=== PATIENT | female | born 1945 | race Caucasian/White ===

== ENCOUNTER 2017-01-11 10:37 | Inpatient (IN) ==
[2017-01-11] MEDS ORDERED: methylPREDNISolone SOD SUC 125 MG/2 ML VIAL IV STA (11:01)
[2017-01-11] MEDS ORDERED: NITROGLYCERIN 2% OINT 1 INCH/GM PACK TOP STA (11:01)
[2017-01-11] MEDS ORDERED: ASPIRIN 325 MG TABLET PO STA (11:01)
[2017-01-11] MEDS ORDERED: FUROSEMIDE 100 MG/10 ML VIAL IV STA (11:01)
[2017-01-11] MEDS ORDERED: FUROSEMIDE 100 MG/10 ML VIAL ONE (11:27)
[2017-01-11] MEDS ORDERED: methylPREDNISolone SOD SUC 125 MG/2 ML VIAL ONE (11:27)
[2017-01-11] MEDS ORDERED: ASPIRIN 325 MG TABLET ONE (11:27)
[2017-01-11] MEDS ORDERED: NITROGLYCERIN 2% OINT 1 INCH/GM PACK TOP ONE (11:27)
[2017-01-11] MEDS ORDERED: ALBUTEROL 2.5 MG/3 ML NEB RESP TX SCH (11:30)
--- NOTE | 2017-01-11 11:31 | XRay Report ---
Portable chest Date: 01/11/2017 Clinical history: Shortness of breath Comparison: None Technique: Portable AP sitting chest Findings: The heart is normal in size with calcification in the aortic knob. Atelectasis at the lung bases. Prominent right hilum. Degenerative changes are noted. Impression: Atelectasis at the lung bases. Prominent right hilum which can be seen with adenopathy/mass. PROCEDURE INTERPRETED AT [facility] DEPARTMENT OF RADIOLOGY Final Report Signed by: Dr. Lotus He
--- NOTE | 2017-01-11 11:39 | EKG Report ---
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
--- NOTE | 2017-01-11 11:41 | CT Report ---
Exam: CT chest PE study Date: 01/11/2017 11:01 AM Indication: Exertional dyspnea Comparison: Routine radiograph Technical: Images were obtained from the thoracic inlet through the lung bases with 80 cc of Omnipaque 350 with axial and coronal imaging available for review. Dose reduction was performed with decreasing kv and mA and automated exposure. 3-D MIP images were obtained Findings: Slightly less than optimal opacification.. The pulmonary outflow tract, left and right proximal pulmonary arteries, first-order, second-order and third order branches reveal no evidence of pulmonary thromboemboli. The lungs are demonstrated without infiltrates or effusions. The mediastinum reveals adenopathy measuring up to approximately 3 cm in the right hilar region with small carinal nodes in the right posterior mediastinal mass adenopathy measuring 1.7 cm. No obvious pneumothorax. Some scarring is present in the right lateral base. No supraclavicular or axillary nodes present. The liver and spleen and stomach are otherwise intact. The adrenal glands are intact. Impression: 1. Right supra suprahilar mass and adenopathy highly suspicious for malignancy . This measures up to 3.6 x3 cm with satellite ipsilateral adenopathy also present. This is suspicious for small cell carcinoma. PET CT imaging or bronchoscopy recommended. 2. No obvious pulmonary thromboemboli Critical test report called to the patient's nurse in the emergency department PROCEDURE INTERPRETED AT [facility] DEPARTMENT OF RADIOLOGY Final Report Signed by: Dr. Eusebio Dover
[2017-01-11 11:46] LABS: Basophils % 0.4 % (0.0-0.8); Eosinophils # 0.1 10*3/uL (0.0-0.87); Eosinophils % 1.1 % (0.00-10.9); Hematocrit 42.8 VOL% (35.7-47.0); Immature Granulocytes % 0.6 %; Immature Granulocytes Absolute 0.05 #; Lymphocytes # 2.2 10*3/uL (1.4-4.0); Lymphocytes % 24.9 % (21.3-54.2); Mean Corpuscular HGB Conc 32.7 GM/DL (32-36); Mean Corpuscular Hemoglobin 30 PG (27-34); Mean Corpuscular Volume 90.9 FL (87-102); Mean Platelet Volume 10.7 FL (9.6-12.0); Monocytes # 0.6 10*3/uL (0.11-0.8); Monocytes % 6.6 % (1.7-12.7); Neutrophils % 66.4 % (38.7-73.9); Platelet Count 212 T/CUMM (130-400); Red Blood Count 4.71 MC/CUMM (3.8-5.5); Red Cell Distribution Width 14.4 % (9.3-17.3)
[2017-01-11] MEDS ORDERED: ENOXAPARIN 100 MG/ML SYRINGE SUBCUT STA (11:53)
[2017-01-11 11:54] LABS: PT Patient Result 10.2 SECS
[2017-01-11 11:57] LABS: ABG Base Excess 2.5 MMOL/L (-2.5-2.5); ABG HCO3 26.5 MMOL/L (20-26); ABG Oxygen Saturation 91.1 % (95-100); ABG PCO2 46.9 MM HG (35-48); ABG PH 7.388 (7.35-7.45); ABG PO2 57.6 MM HG (80-95); ABG TCO2 24.8 MMOL/L (23-27)
[2017-01-11] MEDS ORDERED: ENOXAPARIN 100 MG/ML SYRINGE SUBCUT ONE (12:01)
[2017-01-11 12:17] LABS: Alanine Aminotransferase 39 U/L (13-56); Albumin 3.4 G/DL (3.4-5.0); Alkaline Phosphatase 120 U/L (45-117); Aspartate Amino Transferase 16 U/L (0-37); Blood Urea Nitrogen 11 MG/DL (7-18); Calcium 8.3 MG/DL (8.5-10.1); Glucose 118 MG/DL (74-106); Magnesium 2.3 MG/DL (1.8-2.4); Osmolality,Calculated 280.3 MOS/KG (273-304); Potassium 3.8 MMOL/L (3.5-5.1); Sodium 141 MMOL/L (136-145); Total Protein 6.5 G/DL (6.4-8.3); Troponin I Only < 0.015 NG/ML (0.00-0.045)
[2017-01-11 12:28] LABS: Apearance,Urine CLEAR (Clear); Bilirubin,Urine Negative (Negative); Blood, Urine Moderate mg/dL (Negative); Glucose,Urine (UA) Negative (Negative); Ketones,Urine Negative (Negative); Mucus,Urine Occasional /LPF (Occasional); Nitrite,Urine Negative (Negative); Protein,Urine Negative; RBC,Urine 3 /HPF (0-4); Squamous Epithelial Cell,Urine Occasional /HPF (0-10); Urine Color Straw (Yellow); Urine Specific Gravity 1.045 (1.001-1.035); Urine Urobilinogen < 2.0 EU/DL (0.2-1.0); WBC,Urine <1 /HPF (0-6)
--- NOTE | 2017-01-11 12:30 | Emergency Department Note ---
Gilmer Villatoro Kasabria, am scribing for, and in the presence of, Tacos Barcenas MD 11:09. Narinder Villatoro Charles R, MD, personally performed the services described in this documentation, ascribed by Shabnam Scherer in my presence, and it is both accurate and complete . Arrival - Arrival Chief Complaint: Shortness of Breath Stated Complaint: o2 level down, bp elevated ED Nursing Triage Note: Pt sent from [facility] for low O2 sat (60's) and high blood pressure. Pt is on home O2 at triage. Mode of Arrival: Wheelchair Limitations: No Limitations Source: Patient Time Seen by Provider: 01/11/17 10:53 - History of Present Illness HPI Narrative: This is a 71 y/o white female presenting to the ED for further evaluation from the clinic for low 02 saturation in the 60's and high blood pressure. Pt states she wears at home oxygen 24/7 and is extremely short of breath. Pt was hospitalized three weeks ago at [facility] and states she was given antibiotics and steroids. She thought she had walking PNA but was tested 5 times and all were negative. Pt states her SOB onset while staying in [place] in May. The building was 200 years old and the next morning when she woke up this is when the SOB onset. She is scheduled to see Dr. Nelson for the first time on . She states she has been unable to lay flat for the past several years since her hernia diagnosis. Pt is a borderline diabetic and a PMHx of COPD. She denies GOODE, vision change, fever, chills, nausea, vomiting, diarrhea, abdominal pain, back pain, dysuria, and pedal edema. She has a family history of CHF. Pt is a former smoker. Consistency: constant Severity: moderate Allergies/Adverse Reactions: Allergies Allergy/AdvReac Type Severity Reaction Status Date / Time Tetracycline AdvReac Unknown/Unable Verified 01/11/17 10:39 to obtain Review of System - Review of System 12 point system: reviewed and no additional remarkable complaints except as stated - Review of System Constitutional: Absent: chills, fever, weakness Eyes: Absent: vision change Head/Ears/Nose/Throat: Absent: earache, nasal drainage Respiratory: Absent: cough, wheezing Cardiovascular: Present: dyspnea on exertion. Absent: chest pain Gastrointestinal: Absent: abdominal pain, nausea, vomiting, diarrhea Genitourinary female: Absent: dysuria Musculoskeletal: Absent: arm pain, back pain, leg pain, neck pain Skin: Absent: rash Neurological: Absent: headache, weakness, confusion, vertigo Psychiatric: Absent: anxiety Endocrine: Absent: fatigue Medical,Surgical,& Family Hx - Medical History Respiratory: History of: COPD Other: History of: Miscellaneous Medical Problems (Shingles) - Social History Smoking Status: Former smoker Exam Vital Signs: Vital Signs Temperature 97.5 F L 01/11/17 10:37 Pulse Rate 100 H 01/11/17 10:37 Respiratory Rate 24 01/11/17 10:37 Blood Pressure 138/66 01/11/17 10:37 O2 Sat by Pulse Oximetry 87 L 01/11/17 10:37 - General General appearance: alert, in no apparent distress - Head Head exam: Present: atraumatic, normocephalic, normal inspection - Eye Eye exam: Present: normal appearance, PERRL, EOMI - ENT ENT exam: Present: normal exam, normal oropharynx, mucous membranes moist, TM's normal bilaterally, normal external ear exam - Neck Neck exam: Present: normal inspection, full ROM, trachea midline. Absent: tenderness - Chest Chest inspection: Present: normal inspection, symmetric chest wall rise - Respiratory Respiratory exam: Present: rales (at the base ), rhonchi. Absent: normal lung sounds bilaterally - Cardiovascular Cardiovascular exam: Present: regular rate, normal rhythm, normal heart sounds - Abdominal Exam Abdominal exam: Present: soft, normal bowel sounds. Absent: distention, tenderness - Extremities Exam Extremities exam: Present: normal inspection, full ROM, normal capillary refill. Absent: tenderness, pedal edema, calf tenderness - Back Exam Back exam: Present: normal inspection, full ROM. Absent: tenderness - Neurological Exam Neurological exam: Present: alert, oriented X3, CN II-XII intact, normal gait, reflexes normal - Psychiatric Psychiatric exam: Present: normal affect, normal mood - Skin Skin exam: Present: warm, dry, intact, normal color. Absent: rash, diaphoresis Course - Consultations Consultation #1: Hospitalist will admit patient Time: 12:20 Results - Labs CBC & BMP: 01/11/17 11:05 01/11/17 11:05 Lab Results: I have reviewed the patients labs Labs: Laboratory Tests 01/11/17 11:45 ABG pO2 57.6 L ABG HCO3 26.5 H ABG O2 Saturation 91.1 L - Diagnostic Findings Procedure: Chest x-ray: report reviewed by me (atelectasis at the lung bases. Prominent right hilum which can be seen with adenopathy/mass), CT - chest: report reviewed by me (Right suprahilar mass and adenopathy highly suspicious for malignancy. This measures up to 3.6x3cm with satellite ipsilateral adenopathy also present. This is suspicious for small cell carcinoma. PET CT imaging or bronchoscopy recommended. No obvious pulmonary thrombiemboli.) Critical Care Time Critical Care Time: Yes Total Critical Care Time: 60 Disposition Clinical Impression: Mass of right lung, Suspicious cancerous lesion right long, Exertional dyspnea , Respiratory distress, Hypoxia, COPD exacerbation, Left bundle branch block Case discussed with: patient, patient's family Disposition: Still a Patient Condition: Guarded Time of Disposition: 12:29
[2017-01-11] MEDS ORDERED: ACETAMINOPHEN 325 MG TABLET PO PRN (13:35)
[2017-01-11] MEDS ORDERED: ONDANSETRON 4 MG/2 ML VIAL IV PRN (13:35)
[2017-01-11] MEDS ORDERED: diphenhydrAMINE CAP 25 MG CAPSULE PO PRN (13:35)
[2017-01-11] MEDS ORDERED: DOCUSATE SODIUM 100 MG CAPSULE PO PRN (13:35)
[2017-01-11] MEDS ORDERED: guaiFENesin/DM ER 600-30 MG TABLET PO PRN (13:35)
[2017-01-11] MEDS ORDERED: MORPHINE 2 MG/1 ML SYRINGE IV PRN (13:35)
[2017-01-11] MEDS ORDERED: FLUTICASONE 50 MCG NASAL SPRAY 16 GM BOTTLE BOTH NARES PRN (13:38)
--- NOTE | 2017-01-11 13:45 | Hospitalist History & Physical ---
Assessment and Plan - Time spent with patient Time spent with patient: Greater than 30 minutes (1) Mass of right lung Status: Acute Assessment and plan: Ms. Dumas is a pleasant 71-year-old white female admitted with acute shortness of breath. Patient was found on CT scan to have a right lung mass suspicious for malignancy. Patient is satting 91% on 15 L of O2 by facemask at this time. She is being admitted by the hospitalist service for further workup. Consult Dr. Reagan from pulmonary for further evaluation. We will go ahead and restart her home medicines and monitor her blood pressure. Patient's case has been discussed with Dr. Daniels and further recommendations to follow. Current Visit: Yes (2) Respiratory distress Status: Acute Current Visit: Yes (3) Hypoxia Status: Acute Current Visit: Yes (4) Left bundle branch block Status: Acute Current Visit: Yes (5) Hypertension Status: Acute Current Visit: Yes History of Present Illness Chief complaint: Shortness of breath History of present illness: Ms. Dumas is a 71 year old female with history of hypertension presenting to the ED with progressive shortness of breath. Patient states she started becoming short of breath in May and ignored it. She says she was a 40 year smoker of 3 packs per day. She quit 7 years ago. She states she went to her family doctor finally in August where she was diagnosed with pneumonia and then bronchitis. She has been treated intermittently for the last few months with pneumonia and bronchitis by Dr. Schwab and nurse practitioner Anaid Stewart. Patient states she finally became acutely short of breath about 3 weeks ago and was taken to the emergency room at [facility] where she was admitted, started on IV antibiotics, steroids and breathing treatments. They state she had an acute exacerbation of COPD. She states when she was discharged several days later she continued to wheeze. Patient states she went to the [facility] Anaid Stewart again today for follow-up with progressive shortness of breath and she sent patient to [facility] emergency room. CT scan done in the emergency room shows a right supra hilar mass and adenopathy highly suspicious for malignancy. It measures up to 3.6 x 3 cm with satellite ipsilateral adenopathy present. This is suspicious for small cell carcinoma. There is no obvious pulmonary thromboemboli. Her chest x-ray showed atelectasis at the lung bases with a prominent right hilum suspicious for adenopathy/mass. Her EKG shows a left bundle branch block. Her labs are okay with only abnormality being in an elevated alkaline phosphatase at 120. Her ABGs are showing a low PO2 with O2 saturation at 91% on 15 L facemask. Upon exam patient is tachypneic with conversational dyspnea. Her chest is clear and her blood pressure is elevated. Patient denies headache but has had some blurry vision. She denies chest pain , constipation or diarrhea, dysuria, or lower extremity edema. Patient's case was discussed with Dr. Barcenas the ED physician and Dr. Daniels the admitting hospitalist, and it was agreed patient would be admitted for further evaluation and treatment. Home Medications Medication Instructions Recorded Confirmed Type Albuterol Sulfate [Proair HFA] 2 puff INH BID 01/11/17 01/11/17 History Albuterol/Ipratropium Neb [Duoneb] 3 ml RESP TX BID 01/11/17 01/11/17 History Budesonide/Formoterol 80-4.5 2 puff INH BID 01/11/17 01/11/17 History [Symbicort 80-4.5] Cetirizine Tab [ZyrTEC Tab] 10 mg PO DAILY 01/11/17 01/11/17 History Fluticasone 50 Mcg Nasal [place] 1 spray BOTH NARES DAILY PRN 01/11/17 01/11/17 History [Flonase Nasal [place]] amLODIPine [Norvasc] 5 mg PO DAILY 01/11/17 01/11/17 History Allergies Allergy/AdvReac Type Severity Reaction Status Date / Time Tetracycline AdvReac Unknown/Unable Verified 01/11/17 10:39 to obtain Medical,Surgical,& Family Hx - Medical History Cardio: History of: Hypertension Respiratory: History of: COPD Other: History of: Miscellaneous Medical Problems (Shingles) - Surgical History Abdominal Surgeries: Patient denies: Abdominal Surgery - Family History Family History: Reports;: Family Hypertension - Social History Smoking Status: Former smoker Frequency of Alcohol Use: None Type of Drug Use: None Marital Status: Lives With:: Spouse Functional capacity: independent ambulation Review of systems: Complete 10 system review of systems was obtained and pertinent positives and negatives per HPI Exam - Constitutional Vitals: Period Temp Pulse Resp BP Sys/Cavazos Pulse Ox Last 24 Hr 97.5 F-97.5 F 89-109 22-24 120-150/66-90 87-91 Exam: Constitutional System: Mild distress. No tremulousness. Head: Normocephalic, atraumatic. Ears, Nose and Throat System: No evidence of Otitis or Mastoiditis. No epistaxis or discharge Eyes System: Pupils equal, round, and reactive. Extraocular muscles intact. Neck: Supple, without adenopathy, No jugular venous distention. No thyromegaly, neck mass, or prior surgery apparent. Respiratory System: Chest clear to auscultation. Cardiovascular System: Heart with tachycardic rate and rhythm. No murmur. GI System: Abdomen soft, nontender. Normo active bowel sounds present. Musculoskeletal System: limbs with no pedal edema. Full distal pulses. Neurological System: No discernable sensory deficit. No aphasia Psychiatric System: Conversation is rational Results - Labs CBC & BMP: 01/11/17 11:05 01/11/17 11:05 Lab Results: I have reviewed the past 24 hour labs - Impressions EKG showing left bundle branch block - Diagnostic Findings Procedure: Chest x-ray: report reviewed by me (Atelectasis at the lung bases with prominent right hilum which can be seen with adenopathy/mass), CT - chest: report reviewed by me (Right suprahilar mass and adenopathy suspicious for malignancy. This measures up to 3.6 x 3 cm with satellite ipsilateral adenopathy present. Suspicious for small cell carcinoma. No PE)
[2017-01-11] MEDS ORDERED: ENOXAPARIN 40 MG/0.4 ML SYRINGE SUBCUT SCH (14:00)
[2017-01-11] MEDS: amLODIPine 5 MG TABLET PO SCH (16:55)
[2017-01-11] MEDS: BUDESONIDE/FORMOTEROL 80-4.5 INHALER 6.9 GM INH SCH ×2 (16:56→21:45)
[2017-01-11] MEDS: CETIRIZINE 10 MG TABLET PO SCH (16:56)
[2017-01-11] MEDS: PANTOPRAZOLE 40 MG TABLET PO SCH (16:56)
[2017-01-11] MEDS ORDERED: LEVOFLOXACIN INJ 500 MG in PREMIX 1 EACH IV SCH (17:00)
--- NOTE | 2017-01-11 17:36 | Pulmonology Consult Note ---
Assessment and Plan (1) Mass of right lung Status: Acute Assessment and plan: CT was reviewed and this mass certainly looks likely to be a bronchogenic carcinoma. It is totally compressing the right mainstem bronchus. Difficult to tell whether there is an endobronchial component to it. We will plan bronchoscopy and hopefully I can get a biopsy and a diagnosis that way. If not she may require mediastinoscopy or needle biopsy. We need to get a diagnosis as soon as we can because it is almost totally obstructing the right mainstem bronchus. She would need early radiation and/or chemotherapy under oncology management. Probably would be best to get oncology to see her tomorrow before we even get a diagnosis so they could be ready. Current Visit: Yes (2) Hypoxia Status: Acute Assessment and plan: Nasal oxygen, steroids. oxygen saturation acceptable on current settings. Current Visit: Yes (3) COPD exacerbation Status: Acute Assessment and plan: She does have a localized wheeze on the right side with decreased breath sounds. Not sure whether she actually has COPD or if this is entirely from the lung mass causing obstruction of right mainstem bronchus. Will treat with steroids and bronchodilators anyway. Current Visit: Yes History of Present Illness Chief complaint: Shortness of breath History of present illness: Ms. Dumas is a 71 year old female who had the onset about 7 months ago of shortness of breath when she was visiting in [place]. She got quite short of breath walking. She has continued to have problems with shortness of breath since that time. She saw Dr. Schwab twice in August and was treated with antibiotics and prednisone. She had a chest x-ray that was read as normal. Subsequently had 2 visits to the emergency room at [facility] last month with outpatient treatment wants and a 2 day admission the second time. Again chest x -rays were read as clear at that time. She was brought to the emergency room here earlier today with increasing shortness of breath. She was on oxygen at home and her saturation would drop to 76% just walking to the bathroom. She is a long-term smoker but quit about 6 years ago. She said she gained some weight after stopping smoking. She has had a previous hysterectomy but no other surgery. She had DVT in her left leg when she was in her 20s but never since then. She has not coughed up blood. She does have some pain in her left chest wall. She has noted some fullness in her lower chest anteriorly. There is no known history of heart disease. Home Medications Medication Instructions Recorded Confirmed Type Albuterol Sulfate [Proair HFA] 2 puff INH BID 01/11/17 01/11/17 History Albuterol/Ipratropium Neb [Duoneb] 3 ml RESP TX BID 01/11/17 01/11/17 History Budesonide/Formoterol 80-4.5 2 puff INH BID 01/11/17 01/11/17 History [Symbicort 80-4.5] Cetirizine Tab [ZyrTEC Tab] 10 mg PO DAILY 01/11/17 01/11/17 History Fluticasone 50 Mcg Nasal [place] 1 spray BOTH NARES DAILY PRN 01/11/17 01/11/17 History [Flonase Nasal [place]] amLODIPine [Norvasc] 5 mg PO DAILY 01/11/17 01/11/17 History Allergies Allergy/AdvReac Type Severity Reaction Status Date / Time Tetracycline AdvReac Unknown/Unable Verified 01/11/17 10:39 to obtain 12 point system: reviewed and no additional remarkable complaints except as stated - Constitutional Constitutional: Present: weight gain - Cardiovascular Cardiovascular: Present: dyspnea, dyspnea on exertion - Respiratory Respiratory: Present: cough, dyspnea, dyspnea on exertion - Musculoskeletal Musculoskeletal: Present: myalgias (Left shoulder muscle pain) Exam (Pulmonay) H&P - Constitutional Vitals: Period Temp Pulse Resp BP Sys/Cavazos Pulse Ox Last 24 Hr 98.4 F 102-110 20-24 100-146/56-82 87-92 Exam: Vital signs normal except for pulse about 105. HEENT: Pupils react to light. Throat is clear. Neck supple no bruits. Chest reveals decreased breath sounds on the right side and minimal wheezes there. Left lung is essentially clear. Heart rapid rate normal rhythm no murmurs. Abdomen soft nontender no masses. Bowel sounds present. Extremities no clubbing cyanosis or edema. Calves nontender. Medical,Surgical,& Family Hx - Medical History Cardio: History of: Hypertension Psychological: No history of: Anxiety Disorders, ADHD, Behavior Problems, Bipolar Disorder, Depression, Previous Suicide Attempt, Psychiatric/Substance Abuse Tx, Schizophrenia, Violent Behavior, Psychiatric Problems Respiratory: History of: COPD, Respiratory Problems (lung mass) Other: History of: Miscellaneous Medical Problems (Shingles) - Surgical History Cardiac Surgeries: Patient Denies: Cardiac Catheterization Thoracic Surgeries: Patient denies;: Organ Transplant Abdominal Surgeries: Patient denies: Abdominal Surgery Reproductive Surgeries: Surgical HX of;: Hysterectomy - Family History Family History: Reports;: Family Cancer, Family Heart Disease (mother chf), Family Hypertension, Family Stroke (father) Comment Only: Family Diabetes (brother, sister) - Social History Smoking Status: Former smoker Frequency of Alcohol Use: None Type of Drug Use: None Results - Labs CBC & BMP: 01/11/17 11:05 01/11/17 11:05 Lab Results: I have reviewed the past 24 hour labs - Diagnostic Findings Procedure: Chest x-ray: image reviewed by me (Right hilum is plump), CT - chest : image reviewed by me (3 cm right paratracheal mass totally compressing the right mainstem bronchus. Highly suggestive for bronchogenic carcinoma.)
[2017-01-11 18:43] LABS: PT Patient Result 10.7 SECS; Partial Thromboplastin Time 28.5 SECS (0-40)
[2017-01-11] MEDS: ALBUTEROL/IPRATROPIUM 3 ML NEB RESP TX SCH (20:03)
[2017-01-11] MEDS: ALBUTEROL 2.5 MG/3 ML NEB RESP TX SCH (20:04)
[2017-01-11] MEDS: methylPREDNISolone SOD SUC 125 MG/2 ML VIAL IV SCH (23:30)
[2017-01-12] MEDS ORDERED: MEPERIDINE 50 MG/1 ML VIAL IM ONE (07:00)
[2017-01-12] MEDS ORDERED: PROMETHAZINE 25 MG/1 ML VIAL IM ONE (07:00)
[2017-01-12 07:24] LABS: Basophils % 0.1 % (0.0-0.8); Hematocrit 40.6 VOL% (35.7-47.0); Hemoglobin 13.5 GM/DL (12.0-16.0); Immature Granulocytes % 0.8 %; Lymphocytes # 1.2 10*3/uL (1.4-4.0); Lymphocytes % 9.8 % (21.3-54.2); Mean Corpuscular HGB Conc 33.3 GM/DL (32-36); Mean Corpuscular Hemoglobin 30 PG (27-34); Mean Corpuscular Volume 88.8 FL (87-102); Mean Platelet Volume 10.7 FL (9.6-12.0); Monocytes # 0.1 10*3/uL (0.11-0.8); Monocytes % 0.7 % (1.7-12.7); Neutrophils # 10.9 10*3/uL (1.4-7.4); Neutrophils % 88.6 % (38.7-73.9); Platelet Count 236 T/CUMM (130-400); Red Blood Count 4.57 MC/CUMM (3.8-5.5); Red Cell Distribution Width 14.4 % (9.3-17.3); White Blood Count 12.3 T/CUMM (4-12)
[2017-01-12] MEDS ORDERED: MIDAZOLAM 2 MG/2 ML VIAL IV ONE (07:30)
[2017-01-12] MEDS ORDERED: LIDOCAINE 1% 20 ML VIAL MISC INJ ONE (07:30)
[2017-01-12] MEDS: ALBUTEROL/IPRATROPIUM 3 ML NEB RESP TX SCH (07:40)
[2017-01-12 07:47] LABS: Calcium 8.7 MG/DL (8.5-10.1); Magnesium 2.2 MG/DL (1.8-2.4); Osmolality,Calculated 284.4 MOS/KG (273-304)
[2017-01-12] MEDS: ALBUTEROL 2.5 MG/3 ML NEB RESP TX SCH (08:04)
--- NOTE | 2017-01-12 09:08 | Pulmonology Progress Note ---
Pulmonary - PN: Subj Interval history: This 71-year-old white female has had worsening shortness of breath. She has a mass at the takeoff of the right main bronchus that is apparently totally obstructing it. She gets tired to the right long it is still aerated. However there is only a pin-like opening into the right long. She is set up for bronchoscopy today. She is a little less short of breath. She is coughing up a little phlegm. Exam (Progress Note) - Constitutional Vitals: Period Temp Pulse Resp BP Sys/Cavazos Pulse Ox Last 24 Hr 96.0 F-98.4 F 92-115 14-24 100-146/56-91 87-99 Exam: Patient's alert oriented vital signs normal. O2 sat 94% on 2 L. Pupils react to light. Throat is clear. Neck supple no bruits. Chest reveals decreased breath sounds on the right compared to the left and a localized wheeze over the right midlung. Heart normal rate and rhythm no murmurs. Abdomen soft nontender no masses. Extremities no clubbing cyanosis edema. Calves nontender. Results - Labs CBC & BMP: 01/12/17 06:03 01/12/17 06:03 Lab Results: I have reviewed the past 24 hour labs Assessment and Plan (1) Mass of right lung Status: Acute Assessment and plan: CT was reviewed and this mass certainly looks likely to be a bronchogenic carcinoma. It is totally compressing the right mainstem bronchus. Difficult to tell whether there is an endobronchial component to it. We will plan bronchoscopy and hopefully I can get a biopsy and a diagnosis that way. If not she may require mediastinoscopy or needle biopsy. We need to get a diagnosis as soon as we can because it is almost totally obstructing the right mainstem bronchus. She would need early radiation and/or chemotherapy under oncology management. Probably would be best to get oncology to see her tomorrow before we even get a diagnosis so they could be ready. 01/12/2017 the mass is adjacent to the lower right trachea and appears to completely compress to right main bronchus. Difficult to tell whether there is an endobronchial component. We will know after doing the bronchoscope today. This is almost certainly a bronchogenic carcinoma. She is at risk for total obstruction of the right lung. Current Visit: Yes (2) Hypoxia Status: Acute Assessment and plan: Nasal oxygen, steroids. oxygen saturation acceptable on current settings. 01/12/2017 O2 sat 94% on 2 L. Current Visit: Yes (3) COPD exacerbation Status: Acute Assessment and plan: She does have a localized wheeze on the right side with decreased breath sounds. Not sure whether she actually has COPD or if this is entirely from the lung mass causing obstruction of right mainstem bronchus. Will treat with steroids and bronchodilators anyway. 01/12/17 continuing steroids bronchodilators. Current Visit: Yes
--- NOTE | 2017-01-12 09:29 | Operative Note ---
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 She was brought down to the bronchoscopy suite. After an appropriate timeout to be sure we were dealing with Deborah Dumas, the patient was topically anesthetized in the nose and nasopharynx with Xylocaine. 3 L of nasal oxygen was placed in the right naris. 2 mg of Versed was given intravenously to the point of sedation. The fiberoptic bronchoscope was introduced via the left naris. Vocal cords were identified and noted to function normally with phonation. After further topical anesthesia the trachea was entered. The upper trachea was normal. The distal 2 cm of the right tracheal wall was involved with tumor. It appeared to be mostly extrinsic but there were some abnormal mucosal areas. We biopsied these areas. The mass totally obstructed the right main bronchus. I was able to push it out of the way and get around with a bronchoscope and visualized the right lower and middle lobe bronchi which appeared normal. The right upper lobe is apparently totally obstructed as well. We withdrew back into the trachea to obtain the biopsies. There was mild bleeding which cleared with saline irrigation. Photos were taken as well. This is not a surgically approachable lesion. It involves the lower trachea as well as proximal right main bronchus. She has about 99% obstruction of the right main bronchus, however the tumor is soft enough to be pushed aside with the bronchoscope. Anesthesia: conscious sedation Surgeon / Physician: Charles Reagan Estimated blood loss: minimal Specimens: other (Biopsies 2 or right tracheal wall at takeoff of right main bronchus. Bronchial washings. Low-dose) Condition: stable Disposition: floor Results - Labs CBC & BMP: 01/12/17 06:03 01/12/17 06:03 Discharge Plan - Discharge Medications No Action amLODIPine [Norvasc] 5 mg PO DAILY Fluticasone 50 Mcg Nasal [place] [Flonase Nasal [place]] 1 spray BOTH NARES DAILY PRN PRN Reason: Sinus Symptoms Cetirizine Tab [ZyrTEC Tab] 10 mg PO DAILY Albuterol/Ipratropium Neb [Duoneb] 3 ml RESP TX BID Albuterol Sulfate [Proair HFA] 2 puff INH BID Budesonide/Formoterol 80-4.5 [Symbicort 80-4.5] 2 puff INH BID - Follow Up or Referral - Forms/Instructions
[2017-01-12] MEDS ORDERED: MIDAZOLAM 2 MG/2 ML VIAL ONE (09:45)
[2017-01-12] MEDS: CETIRIZINE 10 MG TABLET PO SCH (11:16)
[2017-01-12] MEDS: PANTOPRAZOLE 40 MG TABLET PO SCH (11:16)
[2017-01-12] MEDS: BUDESONIDE/FORMOTEROL 80-4.5 INHALER 6.9 GM INH SCH (11:16)
[2017-01-12] MEDS: amLODIPine 5 MG TABLET PO SCH (11:16)
[2017-01-12] MEDS: methylPREDNISolone SOD SUC 125 MG/2 ML VIAL IV SCH (11:19)
[2017-01-12 11:41] VITALS: BP 131/64
--- NOTE | 2017-01-12 11:45 | XRay Report ---
Portable chest Date: 01/12/2017 Clinical history: Postbronchoscopy Comparison: 01/11/2017 Technique: Portable AP sitting chest Findings: The heart is normal in size with calcification in the aortic knob. No evidence of a pneumothorax. Minimally progressive diffuse chronic findings at the lung bases with persistent right hilar prominence. Degenerative changes are noted. Impression: No pneumothorax. Progressive atelectasis/infiltration/edema at the lung bases. Residual right hilar prominence with CT proven suprahilar mass. PROCEDURE INTERPRETED AT [facility] [place] DEPARTMENT OF RADIOLOGY Final Report Signed by: Dr. Lotus He
--- NOTE | 2017-01-12 11:47 | Discharge Summary ---
Hospital Course - Hospital Course Hospital Course: The patient is admitted to the hospital with shortness of breath. CT scan reveals right hilar lung mass. The patient had pulmonary consultation with Dr. Reagan. Bronchoscopy revealed the mass had total occlusion of the right mainstem bronchus. the right perihilar mass was found to be soft and movable. When lying in right decubitus the mass allowed some aeration of the right lower and middle lung field . Dr. Reagan felt that the mass was too close to the trachea to be resectable. Biopsies were taken and are now pending. Dr. Reagan did not show any endobronchial lesion on the photographs in the medical record. The patient has now recovered from bronchoscopy and wishes to go home to await pathology. The patient has some shortness of breath which is positional as expected. The patient has no fever and only mild upper airway mucus. The patient will be discharged home with bronchodilator medication. Exam on the date of discharge with the patient sitting upright reveals diminished breath sounds on the entire right side. Discharge time reviewing plan of care and authoring discharge documents required 33 minutes - Time spent with patient Time with patient DS: Greater than 30 minutes Diagnosis - Discharge Diagnosis (1) Mass of right lung Status: Acute (2) Exertional dyspnea Status: Chronic (3) Hypertension Status: Chronic Specialty Discharge - Follow Up or Referrals Follow up with: Charles Reagan MD [Physician] - 01/19/17 2:30 pm Discharge Plan - Discharge Data Disposition: Disch To Home/Self Care Condition at Discharge: Stable Discharge Diet: regular diet Activity: resume usual activities as tolerated - Discharge Medications Continue amLODIPine [Norvasc] 5 mg PO DAILY Fluticasone 50 Mcg Nasal [place] [Flonase Nasal [place]] 1 spray BOTH NARES DAILY PRN PRN Reason: Sinus Symptoms Cetirizine Tab [ZyrTEC Tab] 10 mg PO DAILY Albuterol/Ipratropium Neb [Duoneb] 3 ml RESP TX BID Albuterol Sulfate [Proair HFA] 2 puff INH BID Budesonide/Formoterol 80-4.5 [Symbicort 80-4.5] 2 puff INH BID - Follow Up or Referral Follow Up: Charles Reagan MD [Physician] - 01/19/17 2:30 pm - Forms/Instructions Exam - Constitutional Vitals: Period Temp Pulse Resp BP Sys/Cavazos Pulse Ox Last 24 Hr 96.0 F-98.4 F 71-115 14-24 100-146/56-91 86-99 Discharge Results Procedures and tests throughout hospitalization: Pending Orders 01/12/17 AFB Culture/Smears Routine Bronchial Washings C & Gram St Routine Fungal Culture w/ Prep Routine 01/12/17 09:24 Cytology Request Routine 01/12/17 11:30 XR chest 1V portable Routine Labs on day of discharge: Labs from last 24 hours 01/12/17 01/12/17 01/11/17 06:03 06:03 18:09 WBC 12.3 H D RBC 4.57 Hgb 13.5 Hct 40.6 MCV 88.8 MCH 30 MCHC 33.3 RDW 14.4 Plt Count 236 MPV 10.7 Neut % (Auto) 88.6 H Lymph % (Auto) 9.8 L [place] % (Auto) 0.7 L Eos % (Auto) 0.0 Baso % (Auto) 0.1 Neut # (Auto) 10.9 H Lymph # (Auto) 1.2 L [place] # (Auto) 0.1 L Eos # (Auto) 0.0 Baso # (Auto) 0.0 Immature Gran % 0.8 Nucleated RBC % 0.0 Immature Gran # 0.10 Nucleated RBCs # 0.00 INR 1.0 PT Patient/Control Mix 10.7 Circ Anticoag PTT 28.5 Sodium 140 Potassium 4.0 Chloride 102 Carbon Dioxide 28 Anion Gap 14.0 BUN 18 Creatinine 0.90 GFR Calculation 73 BUN/Creatinine Ratio 20.00 Glucose 178 H Calculated Osmolality 284.4 Calcium 8.7 Magnesium 2.2 DS: Provider Date of admission: 01/11/17 12:26 Primary care physician: . No PCP Attending physician on admission: Rohan Daniels MD Consults: 01/11/17 13:35 Consult to Physician [CONS] Routine Comment: new diag lung cancer, sob Consulting Provider: Charles Reagan When should Consulting Provider be notified: Now Person Notified: nicole Date Notified: 01/11/17 Time Notified: 15:35 01/12/17 09:30 Consult to Physician [CONS] Routine Comment: Tumor obstructing R main bronchus, path pending Consulting Provider: Rayshawn Davis Consult to Specialist Group: Oncology When should Consulting Provider be notified: Now Person Notified: Telma Date Notified: 01/12/17 Time Notified: 10:50 Discharging clinician: Rohan Daniels MD
--- NOTE | 2017-01-12 15:53 | Physician Query Form ---
CLICK EDIT DOCUMENT TO SELECT QUERY ANSWER --> OK --> SIGN Sadia Manrique RN Clinical Chlorinator W) [phone] (f) [phone] [email or web address] PROVIDERS: Make your selection(s) from the choices in EACH section by typing an "x" and enter comments in the comment section. Please use your independent medical judgment in providing your response. This request does not imply that any particular answer is desired or expected. CLINICAL INDICATORS: (Providers should not edit this section) Height: 5ft 1in Weight: 215 lbs Inclinometer Tester BMI: 40.6 If applicable, please provide an associated diagnosis related to the abnormal BMI: BMI of 40 or greater: ( ) Overweight ( ) Obesity (x ) Morbid//Severe Obesity ( ) Obesity with Alveolar Hypoventilation ( ) Weight Gain ( ) BMI is not significant ( ) Other, please specify: ( ) Clinically unable to determine COMMENTS: PLEASE ALSO DOCUMENT RESPONSE IN PROGRESS NOTES AND/OR DISCHARGE SUMMARY Use of terms such as suspected, likely, or probable (associated with a specific diagnosis that is being evaluated, monitored, or treated as if it exists) are acceptable and can be restated in the discharge summary if not ruled out. MTDD
--- NOTE | 2017-01-12 15:59 | Physician Query Form ---
CLICK EDIT DOCUMENT TO SELECT QUERY ANSWER --> OK --> SIGN Sadia Manrique RN Clinical Drum Attendant W) [phone] (f) [phone] [email or web address] PROVIDERS: Make your selection(s) from the choices in EACH section by typing an "x" and enter comments in the comment section. Please use your independent medical judgment in providing your response. This request does not imply that any particular answer is desired or expected. CLINICAL INDICATORS: (Providers should not edit this section) Based on documentation of "acute respiratory distress. Patient is satting 91% on 15 L of O2 by facemask at this time". Pt. also has a history of COPD. "Pt states she wears at home oxygen 21/03". If possible, please further clarify the type and acuity of respiratory diagnosis : ACUITY: ( ) Acute (x ) Chronic ( ) Acute on Chronic TYPE: (x ) Respiratory failure with hypoxia ( ) Respiratory failure with hypercapnia ( ) Respiratory Arrest ( ) Postprocedural/postoperative respiratory failure ( ) Respiratory Insufficiency ( ) ARDS (Adult/Acute Respiratory Distress Syndrome) ( ) Other, please specify: ( ) Clinically unable to determine Recognized criteria for respiratory failure PH <7.35 or >7.45 PO2 <60 PCO2 >50 RR >24 O2 Sat <90% on RA or <95% on O2 Use of accessory muscles Unable to speak in full sentences Intubation is not required COMMENTS: PLEASE ALSO DOCUMENT RESPONSE IN PROGRESS NOTES AND/OR DISCHARGE SUMMARY Use of terms such as suspected, likely, or probable (associated with a specific diagnosis that is being evaluated, monitored, or treated as if it exists) are acceptable and can be restated in the discharge summary if not ruled out. MTDD
== END 2017-01-12 13:45 | disposition home or self-care (01) | DRG 206 ==
LOC: N.ED 10:37 → N.EDINP 12:26 → N.5E 15:32
PROVIDERS: ADMIT Internal Medicine; ATTEND Internal Medicine

== ENCOUNTER 2018-12-07 10:55 | Inpatient (IN) ==
[2018-12-07 11:44] LABS: Basophils % 0.3 % (0.0-0.8); Eosinophils # 0.1 10*3/uL (0.0-0.87); Hematocrit 43.5 VOL% (35.7-47.0); Hemoglobin 13.8 GM/DL (12.0-16.0); Immature Granulocytes % 0.4 %; Immature Granulocytes Absolute 0.04 #; Lymphocytes # 1.4 10*3/uL (1.4-4.0); Lymphocytes % 13.4 % (21.3-54.2); Mean Corpuscular HGB Conc 31.7 GM/DL (32-36); Mean Corpuscular Hemoglobin 29 PG (27-34); Mean Corpuscular Volume 92.8 FL (87-102); Mean Platelet Volume 10.1 FL (9.6-12.0); Monocytes % 9.8 % (1.7-12.7); Neutrophils # 7.8 10*3/uL (1.4-7.4); Neutrophils % 75.1 % (38.7-73.9); Platelet Count 234 T/CUMM (130-400); Red Blood Count 4.69 MC/CUMM (3.8-5.5); Red Cell Distribution Width 13.8 % (9.3-17.3); White Blood Count 10.4 T/CUMM (4-12)
[2018-12-07 12:07] LABS: Alanine Aminotransferase 21 U/L (13-56); Albumin 3.1 G/DL (3.4-5.0); Alkaline Phosphatase 115 U/L (45-117); Aspartate Amino Transferase 18 U/L (0-37); Bilirubin,Total < 0.39 MG/DL (0.2-1.0); Blood Urea Nitrogen 9 MG/DL (7-18); Calcium 8.8 MG/DL (8.5-10.1); Glucose 102 MG/DL (74-106); Osmolality,Calculated 268.1 MOS/KG (273-304); Sodium 135 MMOL/L (136-145); Total Protein 7.7 G/DL (6.4-8.3)
[2018-12-07] MEDS ORDERED: ONDANSETRON 4 MG/2 ML VIAL IV PRN (13:46)
[2018-12-07] MEDS ORDERED: ACETAMINOPHEN 325 MG TABLET PO PRN (13:46)
[2018-12-07 15:44] LABS: Apearance,Urine CLEAR (Clear); Bilirubin,Urine Negative (Negative); Blood, Urine Small mg/dL (Negative); Glucose,Urine (UA) Negative (Negative); Hyaline Casts,Urine 8 /LPF (0-3); Ketones,Urine Negative (Negative); Mucus,Urine Occasional /LPF (Occasional); Nitrite,Urine Negative (Negative); Protein,Urine Negative; RBC,Urine 3 /HPF (0-4); Squamous Epithelial Cell,Urine Occasional /HPF (0-10); Urine Color Yellow (Yellow); Urine Specific Gravity 1.016 (1.001-1.035); Urine Urobilinogen < 2.0 EU/DL (0.2-1.0); WBC,Urine 1 /HPF (0-6)
[2018-12-07 16:02] LABS: Troponin I < 0.015 NG/ML (0.00-0.045)
[2018-12-07] MEDS: cefTRIAXone 1,000 MG in SYRINGE 1 EACH IV SCH (18:00)
[2018-12-07] MEDS: AZITHROMYCIN INJ 500 MG in SODIUM CHLORIDE 0.9% 250 ML IV SCH (18:05)
[2018-12-07] MEDS ORDERED: ALBUTEROL 2.5 MG/3 ML NEB RESP TX PRN (19:00)
[2018-12-07 21:06] LABS: Troponin I < 0.015 NG/ML (0.00-0.045)
[2018-12-08] MEDS: guaiFENesin 200 MG/10 ML UDCUP PO PRN ×2 (00:13→21:30)
[2018-12-08] MEDS: ALBUTEROL/IPRATROPIUM 3 ML NEB RESP TX PRN ×4 (01:20→19:35)
[2018-12-08 05:16] LABS: Basophils % 0.4 % (0.0-0.8); Eosinophils # 0.1 10*3/uL (0.0-0.87); Eosinophils % 1.4 % (0.00-10.9); Hematocrit 39.2 VOL% (35.7-47.0); Hemoglobin 12.6 GM/DL (12.0-16.0); Immature Granulocytes % 0.3 %; Immature Granulocytes Absolute 0.03 #; Lymphocytes # 1.3 10*3/uL (1.4-4.0); Lymphocytes % 13.9 % (21.3-54.2); Mean Corpuscular HGB Conc 32.1 GM/DL (32-36); Mean Corpuscular Hemoglobin 30 PG (27-34); Mean Platelet Volume 10.7 FL (9.6-12.0); Monocytes % 10.9 % (1.7-12.7); Neutrophils # 6.7 10*3/uL (1.4-7.4); Neutrophils % 73.1 % (38.7-73.9); Platelet Count 227 T/CUMM (130-400); Red Blood Count 4.26 MC/CUMM (3.8-5.5); Red Cell Distribution Width 13.9 % (9.3-17.3); White Blood Count 9.2 T/CUMM (4-12)
[2018-12-08 05:31] LABS: Troponin I < 0.015 NG/ML (0.00-0.045)
[2018-12-08 05:32] LABS: Calcium 8.6 MG/DL (8.5-10.1); Potassium 3.6 MMOL/L (3.5-5.1)
[2018-12-08] MEDS: PANTOPRAZOLE 40 MG TABLET PO SCH (09:41)
[2018-12-08] MEDS: CETIRIZINE 10 MG TABLET PO SCH (09:41)
[2018-12-08] MEDS: MULTIVITAMIN (CENTRUM) TABLET PO SCH (09:41)
[2018-12-08] MEDS: MAGNESIUM OXIDE 400 MG TABLET PO SCH (09:41)
[2018-12-08] MEDS: FLUTICASONE 50 MCG NASAL SPRAY 16 GM BOTTLE BOTH NARES SCH (09:41)
[2018-12-08] MEDS: COCONUT OIL 1000 MG PO SCH (09:42)
[2018-12-08] MEDS: Saccharomyces Boulardii [Probiotic] 250 MG PO SCH (09:42)
[2018-12-08] MEDS: cefTRIAXone 1,000 MG in SYRINGE 1 EACH IV SCH (14:08)
[2018-12-08] MEDS: AZITHROMYCIN INJ 500 MG in SODIUM CHLORIDE 0.9% 250 ML IV SCH (14:50)
[2018-12-09] MEDS: ALBUTEROL/IPRATROPIUM 3 ML NEB RESP TX PRN ×4 (00:09→19:24)
[2018-12-09 04:35] LABS: Basophils % 0.6 % (0.0-0.8); Eosinophils # 0.3 10*3/uL (0.0-0.87); Eosinophils % 3.5 % (0.00-10.9); Hematocrit 38.4 VOL% (35.7-47.0); Hemoglobin 12.2 GM/DL (12.0-16.0); Immature Granulocytes % 0.7 %; Immature Granulocytes Absolute 0.05 #; Lymphocytes # 1.2 10*3/uL (1.4-4.0); Lymphocytes % 16.1 % (21.3-54.2); Mean Corpuscular HGB Conc 31.8 GM/DL (32-36); Mean Corpuscular Hemoglobin 30 PG (27-34); Mean Corpuscular Volume 93.2 FL (87-102); Mean Platelet Volume 10.4 FL (9.6-12.0); Monocytes # 0.8 10*3/uL (0.11-0.8); Monocytes % 11.1 % (1.7-12.7); Neutrophils # 4.9 10*3/uL (1.4-7.4); Platelet Count 216 T/CUMM (130-400); Red Blood Count 4.12 MC/CUMM (3.8-5.5); Red Cell Distribution Width 13.9 % (9.3-17.3); White Blood Count 7.1 T/CUMM (4-12)
[2018-12-09] MEDS: guaiFENesin 200 MG/10 ML UDCUP PO PRN ×2 (04:46→17:00)
[2018-12-09 05:32] LABS: Calcium 8.1 MG/DL (8.5-10.1); Osmolality,Calculated 277.4 MOS/KG (273-304); Potassium 3.5 MMOL/L (3.5-5.1)
[2018-12-09] MEDS: AZITHROMYCIN 250 MG TABLET PO SCH (09:45)
[2018-12-09] MEDS: MULTIVITAMIN (CENTRUM) TABLET PO SCH (09:45)
[2018-12-09] MEDS: PANTOPRAZOLE 40 MG TABLET PO SCH (09:45)
[2018-12-09] MEDS: FLUTICASONE 50 MCG NASAL SPRAY 16 GM BOTTLE BOTH NARES SCH (09:45)
[2018-12-09] MEDS: MAGNESIUM OXIDE 400 MG TABLET PO SCH (09:45)
[2018-12-09] MEDS: Saccharomyces Boulardii [Probiotic] 250 MG PO SCH (09:46)
[2018-12-09] MEDS: COCONUT OIL 1000 MG PO SCH (09:46)
[2018-12-09] MEDS: CETIRIZINE 10 MG TABLET PO SCH (09:46)
[2018-12-09] MEDS: cefTRIAXone 1,000 MG in SYRINGE 1 EACH IV SCH (15:28)
[2018-12-10] MEDS: ALBUTEROL/IPRATROPIUM 3 ML NEB RESP TX PRN ×2 (00:55→13:42)
[2018-12-10 05:04] LABS: Basophils % 0.5 % (0.0-0.8); Eosinophils # 0.2 10*3/uL (0.0-0.87); Eosinophils % 2.9 % (0.00-10.9); Hematocrit 38.7 VOL% (35.7-47.0); Hemoglobin 11.9 GM/DL (12.0-16.0); Immature Granulocytes % 0.8 %; Immature Granulocytes Absolute 0.06 #; Mean Corpuscular HGB Conc 30.7 GM/DL (32-36); Mean Corpuscular Hemoglobin 29 PG (27-34); Mean Corpuscular Volume 95.1 FL (87-102); Mean Platelet Volume 10.2 FL (9.6-12.0); Monocytes # 0.8 10*3/uL (0.11-0.8); Monocytes % 10.5 % (1.7-12.7); Neutrophils # 5.6 10*3/uL (1.4-7.4); Neutrophils % 72.3 % (38.7-73.9); Platelet Count 225 T/CUMM (130-400); Red Blood Count 4.07 MC/CUMM (3.8-5.5); Red Cell Distribution Width 13.6 % (9.3-17.3); White Blood Count 7.7 T/CUMM (4-12)
[2018-12-10 05:24] LABS: Calcium 8.1 MG/DL (8.5-10.1); Osmolality,Calculated 276.4 MOS/KG (273-304); Potassium 3.5 MMOL/L (3.5-5.1)
[2018-12-10] MEDS: CETIRIZINE 10 MG TABLET PO SCH (09:15)
[2018-12-10] MEDS: FLUTICASONE 50 MCG NASAL SPRAY 16 GM BOTTLE BOTH NARES SCH (09:15)
[2018-12-10] MEDS: MAGNESIUM OXIDE 400 MG TABLET PO SCH (09:15)
[2018-12-10] MEDS: PANTOPRAZOLE 40 MG TABLET PO SCH (09:15)
[2018-12-10] MEDS: AZITHROMYCIN 250 MG TABLET PO SCH (09:15)
[2018-12-10] MEDS: MULTIVITAMIN (CENTRUM) TABLET PO SCH (09:15)
[2018-12-10] MEDS: COCONUT OIL 1000 MG PO SCH (09:16)
[2018-12-10] MEDS: Saccharomyces Boulardii [Probiotic] 250 MG PO SCH (09:16)
[2018-12-10 12:51] VITALS: BP 102/55
== END 2018-12-10 14:39 | disposition home or self-care (01) | DRG 195 ==
LOC: N.ED 10:55 → N.EDINP 13:45 → N.TELEN 17:34
PROVIDERS: ADMIT Internal Medicine; ATTEND Internal Medicine

== ENCOUNTER 2019-03-19 10:56 | Observation (INO) ==
[2019-03-19] MEDS ORDERED: ALBUTEROL 2.5 MG/3 ML NEB RESP TX STA (11:40)
[2019-03-19] MEDS ORDERED: methylPREDNISolone SOD SUC 125 MG/2 ML VIAL IV STA (11:40)
[2019-03-19 11:54] LABS: Basophils # 0.1 10*3/uL (0.0-0.2); Basophils % 0.5 % (0.0-0.8); Eosinophils # 0.2 10*3/uL (0.0-0.87); Eosinophils % 1.2 % (0.00-10.9); Hematocrit 45.5 VOL% (35.7-47.0); Hemoglobin 14.2 GM/DL (12.0-16.0); Immature Granulocytes % 0.7 %; Immature Granulocytes Absolute 0.09 #; Lymphocytes # 1.3 10*3/uL (1.4-4.0); Lymphocytes % 9.6 % (21.3-54.2); Mean Corpuscular HGB Conc 31.2 GM/DL (32-36); Monocytes % 7.4 % (1.7-12.7); Neutrophils % 80.6 % (38.7-73.9); Platelet Count 220 T/CUMM (130-400); Red Blood Count 4.84 MC/CUMM (3.8-5.5); Red Cell Distribution Width 13.9 % (9.3-17.3); White Blood Count 13.2 T/CUMM (4-12)
[2019-03-19 12:09] LABS: Albumin 3.5 G/DL (3.4-5.0); Bilirubin,Total 1.1 MG/DL (0.2-1.0); Calcium 8.4 MG/DL (8.5-10.1); Osmolality,Calculated 281.3 MOS/KG (273-304); Total Protein 6.8 G/DL (6.4-8.3)
[2019-03-19 13:00] LABS: PT Patient Result 10.6 SECS
[2019-03-19 13:07] LABS: Apearance,Urine CLOUDY (Clear); Bacteria,Urine Occasional /HPF (Few); Bilirubin,Urine Negative (Negative); Blood, Urine Moderate mg/dL (Negative); Glucose,Urine (UA) Negative (Negative); Ketones,Urine 5 mg/dL (Negative); Mucus,Urine Many /LPF (Occasional); Nitrite,Urine Negative (Negative); Protein,Urine 100 MG/DL; RBC,Urine 33 /HPF (0-4); Squamous Epithelial Cell,Urine Moderate /HPF (0-10); Urine Color Amber (Yellow); WBC,Urine 3 /HPF (0-6)
[2019-03-19] MEDS ORDERED: LEVOFLOXACIN INJ 500 MG in PREMIX 1 EACH IV STA (13:45)
[2019-03-19] MEDS ORDERED: ALBUTEROL/IPRATROPIUM 3 ML NEB RESP TX STA (14:08)
[2019-03-19] MEDS ORDERED: ALBUTEROL 2.5 MG/3 ML NEB RESP TX PRN (14:11)
[2019-03-19] MEDS ORDERED: cefTRIAXone 1,000 MG in SYRINGE 1 EACH IV SCH (14:30)
[2019-03-19] MEDS: HEPARIN 5,000 UNIT/1 ML VIAL SUBCUT SCH ×2 (17:53→22:50)
[2019-03-19] MEDS: AZITHROMYCIN 250 MG TABLET PO SCH (17:54)
[2019-03-19] MEDS: methylPREDNISolone SOD SUC 40 MG/1 ML VIAL IV SCH ×2 (18:24→22:49)
[2019-03-19] MEDS: ALBUTEROL/IPRATROPIUM 3 ML NEB RESP TX SCH (18:53)
[2019-03-19] MEDS ORDERED: ALBUTEROL/IPRATROPIUM 3 ML NEB RESP TX SCH (19:00)
[2019-03-19] MEDS: BUDESONIDE/FORMOTEROL 160-4.5 INHALER 6 GM INH SCH (22:57)
[2019-03-20] MEDS: ALBUTEROL/IPRATROPIUM 3 ML NEB RESP TX SCH ×2 (00:23→07:09)
[2019-03-20] MEDS ORDERED: guaiFENesin/CODEINE 5 ML LIQUID PO PRN (02:23)
[2019-03-20 06:01] LABS: Basophils % 0.2 % (0.0-0.8); Hematocrit 40.7 VOL% (35.7-47.0); Hemoglobin 12.9 GM/DL (12.0-16.0); Immature Granulocytes % 0.7 %; Immature Granulocytes Absolute 0.08 #; Lymphocytes # 0.9 10*3/uL (1.4-4.0); Lymphocytes % 7.8 % (21.3-54.2); Mean Corpuscular HGB Conc 31.7 GM/DL (32-36); Mean Corpuscular Volume 92.3 FL (87-102); Mean Platelet Volume 10.3 FL (9.6-12.0); Monocytes % 1.3 % (1.7-12.7); Platelet Count 219 T/CUMM (130-400); Red Blood Count 4.41 MC/CUMM (3.8-5.5); Red Cell Distribution Width 13.9 % (9.3-17.3)
[2019-03-20 06:37] LABS: Alanine Aminotransferase 13 U/L (13-56); Albumin 2.8 G/DL (3.4-5.0); Alkaline Phosphatase 93 U/L (45-117); Aspartate Amino Transferase 10 U/L (0-37); Bilirubin,Total < 0.39 MG/DL (0.2-1.0); Blood Urea Nitrogen 14 MG/DL (7-18); Calcium 8.4 MG/DL (8.5-10.1); Glucose 156 MG/DL (74-106); Osmolality,Calculated 276.8 MOS/KG (273-304); Total Protein 6.9 G/DL (6.4-8.3)
[2019-03-20] MEDS: HEPARIN 5,000 UNIT/1 ML VIAL SUBCUT SCH (07:18)
[2019-03-20] MEDS: methylPREDNISolone SOD SUC 40 MG/1 ML VIAL IV SCH (07:20)
[2019-03-20 07:55] VITALS: BP 105/65
[2019-03-20] MEDS: BUDESONIDE/FORMOTEROL 160-4.5 INHALER 6 GM INH SCH (08:38)
[2019-03-20] MEDS: AZITHROMYCIN 250 MG TABLET PO SCH (08:45)
[2019-03-20] MEDS ORDERED: CETIRIZINE 10 MG TABLET PO SCH (09:00)
[2019-03-20] MEDS ORDERED: POTASSIUM CHLORIDE 10 MEQ TABLET PO SCH (09:00)
[2019-03-20] MEDS ORDERED: LACTOBACILLUS ACIDOPHILUS/BULGARICUS CAPLET PO SCH (09:00)
[2019-03-20] MEDS ORDERED: MULTIVITAMIN (CENTRUM) TABLET PO SCH (09:00)
[2019-03-20] MEDS ORDERED: CYANOCOBALAMIN 500 MCG TABLET PO SCH (09:00)
[2019-03-20] MEDS ORDERED: COCONUT OIL 1000 MG PO SCH (09:00)
[2019-03-20] MEDS ORDERED: FLUTICASONE 50 MCG NASAL SPRAY 16 GM BOTTLE BOTH NARES SCH (09:00)
[2019-03-20] MEDS ORDERED: MAGNESIUM OXIDE 400 MG TABLET PO SCH (09:00)
== END 2019-03-20 11:58 | disposition home or self-care (01) ==
LOC: N.ED 10:56 → N.2E 10:56
PROVIDERS: ADMIT Family Medicine; ATTEND Family Medicine

== ENCOUNTER 2019-05-14 03:58 | Observation (INO) ==
[2019-05-14] MEDS ORDERED: ALBUTEROL/IPRATROPIUM 3 ML NEB RESP TX STA (04:42)
[2019-05-14] MEDS ORDERED: methylPREDNISolone SOD SUC 125 MG/2 ML VIAL IV STA (04:42)
[2019-05-14 04:50] LABS: Basophils % 0.5 % (0.0-0.8); Eosinophils # 0.4 10*3/uL (0.0-0.87); Eosinophils % 5.3 % (0.00-10.9); Hematocrit 42.1 VOL% (35.7-47.0); Hemoglobin 13.5 GM/DL (12.0-16.0); Immature Granulocytes % 0.3 %; Immature Granulocytes Absolute 0.02 #; Lymphocytes # 1.2 10*3/uL (1.4-4.0); Lymphocytes % 17.6 % (21.3-54.2); Mean Corpuscular HGB Conc 32.1 GM/DL (32-36); Mean Corpuscular Volume 93.3 FL (87-102); Mean Platelet Volume 10.3 FL (9.6-12.0); Monocytes % 8.7 % (1.7-12.7); Neutrophils % 67.6 % (38.7-73.9); Platelet Count 202 T/CUMM (130-400); Red Blood Count 4.51 MC/CUMM (3.8-5.5); White Blood Count 6.6 T/CUMM (4-12)
[2019-05-14 05:17] LABS: Albumin 3.2 G/DL (3.4-5.0); Bilirubin,Total 0.4 MG/DL (0.2-1.0); Osmolality,Calculated 282.1 MOS/KG (273-304); Total Protein 6.8 G/DL (6.4-8.3)
[2019-05-14] MEDS ORDERED: POTASSIUM CHLORIDE 20 MEQ TABLET PO ONE (05:50)
[2019-05-14] MEDS ORDERED: ACETAMINOPHEN 325 MG TABLET PO PRN (05:51)
[2019-05-14] MEDS ORDERED: ONDANSETRON 4 MG/2 ML VIAL IV PRN (05:51)
[2019-05-14] MEDS: ENOXAPARIN 40 MG/0.4 ML SYRINGE SUBCUT SCH (06:36)
[2019-05-14] MEDS ORDERED: INFLUENZA VIRUS VACCINE 0.5 ML SYRINGE IM ONE (09:37)
[2019-05-14] MEDS: predniSONE 20 MG TABLET PO SCH (09:38)
[2019-05-14] MEDS: PANTOPRAZOLE 40 MG TABLET PO SCH (09:38)
[2019-05-14] MEDS: FLUTICASONE/SALMETEROL 250-50 DISKUS 14 DOSE INH SCH ×2 (09:42→20:56)
[2019-05-14] MEDS: ALBUTEROL/IPRATROPIUM 3 ML NEB RESP TX SCH ×5 (10:23→23:49)
[2019-05-15] MEDS: ALBUTEROL/IPRATROPIUM 3 ML NEB RESP TX SCH ×3 (03:52→11:00)
[2019-05-15 05:32] LABS: Basophils % 0.1 % (0.0-0.8); Hematocrit 41.6 VOL% (35.7-47.0); Hemoglobin 13.3 GM/DL (12.0-16.0); Immature Granulocytes % 0.6 %; Immature Granulocytes Absolute 0.08 #; Lymphocytes % 6.9 % (21.3-54.2); Mean Corpuscular Volume 94.1 FL (87-102); Mean Platelet Volume 10.3 FL (9.6-12.0); Monocytes % 3.6 % (1.7-12.7); Neutrophils % 88.8 % (38.7-73.9); Platelet Count 220 T/CUMM (130-400); Red Blood Count 4.42 MC/CUMM (3.8-5.5); Red Cell Distribution Width 14.2 % (9.3-17.3); White Blood Count 14.3 T/CUMM (4-12)
[2019-05-15] MEDS: ENOXAPARIN 40 MG/0.4 ML SYRINGE SUBCUT SCH (05:42)
[2019-05-15 06:00] LABS: Calcium 8.6 MG/DL (8.5-10.1); Osmolality,Calculated 281.4 MOS/KG (273-304)
[2019-05-15] MEDS: predniSONE 20 MG TABLET PO SCH (09:25)
[2019-05-15] MEDS: PANTOPRAZOLE 40 MG TABLET PO SCH (09:25)
[2019-05-15] MEDS: FLUTICASONE/SALMETEROL 250-50 DISKUS 14 DOSE INH SCH (09:26)
[2019-05-15 11:20] VITALS: BP 110/68
== END 2019-05-15 12:00 | disposition home or self-care (01) ==
LOC: N.ED 03:58 → N.EDINP 03:58 → SUATTDRO 05:51 → N.4E 07:09
PROVIDERS: ADMIT Internal Medicine

== ENCOUNTER 2019-07-03 13:59 | Inpatient (IN) ==
[2019-07-03] MEDS ORDERED: MAGNESIUM SULF RIDER 2 GM in PREMIX 1 EACH IV STA (14:36)
[2019-07-03] MEDS ORDERED: SODIUM CHLORIDE 0.9% 500 ML IV STA (14:36)
[2019-07-03] MEDS ORDERED: methylPREDNISolone SOD SUC 125 MG/2 ML VIAL IV STA (14:36)
[2019-07-03 14:39] LABS: Basophils # 0.1 10*3/uL (0.0-0.2); Basophils % 0.8 % (0.0-0.8); Eosinophils # 0.2 10*3/uL (0.0-0.87); Eosinophils % 3.3 % (0.00-10.9); Hematocrit 45.2 VOL% (35.7-47.0); Hemoglobin 14.3 GM/DL (12.0-16.0); Immature Granulocytes % 0.3 %; Immature Granulocytes Absolute 0.02 #; Lymphocytes # 1.2 10*3/uL (1.4-4.0); Lymphocytes % 20.3 % (21.3-54.2); Mean Corpuscular HGB Conc 31.6 GM/DL (32-36); Monocytes % 11.7 % (1.7-12.7); Neutrophils % 63.6 % (38.7-73.9); Platelet Count 182 T/CUMM (130-400); Red Blood Count 4.86 MC/CUMM (3.8-5.5); Red Cell Distribution Width 13.9 % (9.3-17.3); White Blood Count 6.1 T/CUMM (4-12)
[2019-07-03 14:58] LABS: PT Patient Result 10.7 SECS (9.6-12.2); Partial Thromboplastin Time 25.1 SECS (20.8-36.0)
[2019-07-03] MEDS ORDERED: ALBUTEROL 2.5 MG/3 ML NEB RESP TX SCH (15:00)
[2019-07-03 15:05] LABS: Albumin 3.5 G/DL (3.4-5.0); Bilirubin,Total 0.5 MG/DL (0.2-1.0); Calcium 9.3 MG/DL (8.5-10.1); Total Protein 7.2 G/DL (6.4-8.3)
[2019-07-03] MEDS ORDERED: LEVOFLOXACIN INJ 500 MG in PREMIX 1 EACH IV STA (15:18)
[2019-07-03] MEDS ORDERED: ALBUTEROL 2.5 MG/3 ML NEB RESP TX PRN (15:55)
[2019-07-03] MEDS ORDERED: ACETAMINOPHEN 325 MG TABLET PO PRN (15:55)
[2019-07-03] MEDS ORDERED: ONDANSETRON 4 MG/2 ML VIAL IV PRN (15:55)
[2019-07-03] MEDS: ALBUTEROL/IPRATROPIUM 3 ML NEB RESP TX SCH (20:15)
[2019-07-03] MEDS ORDERED: ENOXAPARIN 40 MG/0.4 ML SYRINGE SUBCUT SCH (21:00)
[2019-07-03] MEDS: methylPREDNISolone SOD SUC 40 MG/1 ML VIAL IV SCH (23:33)
[2019-07-04] MEDS: ALBUTEROL/IPRATROPIUM 3 ML NEB RESP TX SCH ×2 (00:10→07:04)
[2019-07-04 05:50] LABS: Hematocrit 44.2 VOL% (35.7-47.0); Hemoglobin 13.8 GM/DL (12.0-16.0); Immature Granulocytes % 0.6 %; Immature Granulocytes Absolute 0.03 #; Lymphocytes # 0.5 10*3/uL (1.4-4.0); Lymphocytes % 11.4 % (21.3-54.2); Mean Corpuscular HGB Conc 31.2 GM/DL (32-36); Mean Corpuscular Volume 93.6 FL (87-102); Monocytes % 1.7 % (1.7-12.7); Neutrophils % 86.3 % (38.7-73.9); Platelet Count 189 T/CUMM (130-400); Red Blood Count 4.72 MC/CUMM (3.8-5.5); Red Cell Distribution Width 13.8 % (9.3-17.3); White Blood Count 4.7 T/CUMM (4-12)
[2019-07-04] MEDS: methylPREDNISolone SOD SUC 40 MG/1 ML VIAL IV SCH (06:03)
[2019-07-04 06:15] LABS: Osmolality,Calculated 285.3 MOS/KG (273-304)
[2019-07-04] MEDS ORDERED: PANTOPRAZOLE 40 MG TABLET PO SCH (09:00)
[2019-07-04] MEDS ORDERED: POTASSIUM CHLORIDE 20 MEQ TABLET PO SCH (09:00)
[2019-07-04] MEDS ORDERED: FLUTICASONE 50 MCG NASAL SPRAY 16 GM BOTTLE BOTH NARES SCH (09:00)
[2019-07-04] MEDS ORDERED: CYANOCOBALAMIN 500 MCG TABLET PO SCH (09:00)
[2019-07-04] MEDS ORDERED: LACTOBACILLUS ACIDOPHILUS/BULGARICUS CAPLET PO SCH (09:00)
[2019-07-04] MEDS ORDERED: CALCIUM MAGNESIUM ZINC PO SCH (09:00)
[2019-07-04] MEDS ORDERED: CETIRIZINE 10 MG TABLET PO SCH (09:00)
[2019-07-04] MEDS ORDERED: COCONUT OIL 1000 MG PO SCH (09:00)
[2019-07-04 12:17] VITALS: BP 134/63
[2019-07-04] MEDS ORDERED: LEVOFLOXACIN INJ 750 MG in PREMIX 1 EACH IV SCH (21:00)
== END 2019-07-04 12:52 | disposition home health service (06) | DRG 192 ==
LOC: N.ED 13:59 → N.EDINP 15:35 → N.2E 16:36
PROVIDERS: ADMIT Internal Medicine; ATTEND Internal Medicine

== ENCOUNTER 2021-08-31 09:17 | Inpatient (IN) ==
[2021-08-31] MEDS ORDERED: SODIUM CHLORIDE 0.9% 1,000 ML IV STA (14:10)
[2021-08-31] MEDS ORDERED: DILTIAZEM 50 MG/10 ML VIAL IV STA (14:21)
[2021-08-31 14:33] LABS: Basophils % 0.2 % (0.0-0.8); Hematocrit 44.2 VOL% (35.7-47.0); Immature Granulocytes % 0.5 %; Immature Granulocytes Absolute 0.07 #; Lymphocytes # 1.4 10*3/uL (1.4-4.0); Lymphocytes % 10.3 % (21.3-54.2); Mean Corpuscular HGB Conc 31.7 GM/DL (32-36); Mean Corpuscular Volume 92.7 FL (87-102); Mean Platelet Volume 10.2 FL (9.6-12.0); Monocytes % 8.2 % (1.7-12.7); Neutrophils % 80.8 % (38.7-73.9); Platelet Count 250 T/CUMM (130-400); Red Blood Count 4.77 MC/CUMM (3.8-5.5)
[2021-08-31 14:45] LABS: INR 1.1; PT Patient Result 12.4 SECS (10.5-12.0); Partial Thromboplastin Time 27.5 SECS (23.8-32.1)
[2021-08-31] MEDS: DILTIAZEM INJ 100 MG in SODIUM CHLORIDE 0.9% 100 ML IV SCH (14:51)
[2021-08-31 14:54] LABS: Alanine Aminotransferase 26 U/L (13-56); Alkaline Phosphatase 119 U/L (45-117); Aspartate Amino Transferase 37 U/L (0-37); Bilirubin,Total < 0.39 MG/DL (0.20-1.00); Blood Urea Nitrogen 12 MG/DL (7-18); Calcium 8.7 MG/DL (8.5-10.1); Carbon Dioxide 31 MMOL/L (21-32); Estimated Glom Filtration Rate 76 ML/MIN; Glucose 115 MG/DL (74-106); Potassium 3.5 MMOL/L (3.5-5.1); Sodium 136 MMOL/L (136-145); Total Protein 7.1 G/DL (6.4-8.2)
[2021-08-31 15:13] LABS: Bacteria,Urine Occasional /HPF (Few); Bilirubin,Urine Negative (Negative); Blood, Urine Small mg/dL (Negative); Glucose,Urine (UA) Negative (Negative); Ketones,Urine 5 mg/dL (Negative); Mucus,Urine Occasional /LPF (Occasional); Nitrite,Urine Negative (Negative); Protein,Urine 100 MG/DL; RBC,Urine 17 /HPF (0-4); Squamous Epithelial Cell,Urine Many /HPF (0-10); Urine Appearance CLOUDY (Clear); Urine Color Amber (Yellow); Urine Specific Gravity 1.031 (1.001-1.035)
[2021-08-31] MEDS ORDERED: ACETAMINOPHEN 325 MG TABLET PO PRN (15:39)
[2021-08-31] MEDS ORDERED: CALCIUM CARBONATE CHEW 500 MG TABLET PO PRN (15:39)
[2021-08-31] MEDS ORDERED: DOCUSATE SODIUM 100 MG CAPSULE PO PRN (15:39)
[2021-08-31 15:40] LABS: Barbiturates Screen,Urine Negative (Negative); Benzodiazepines Screen,Urine Negative (Negative); Cannabinoid Screen,Urine Negative (Negative); Opiate Screen,Urine Negative (Negative); Phencyclidine Screen,Urine Negative (Negative)
[2021-08-31] MEDS ORDERED: LACTATED RINGERS 1,000 ML IV SCH (16:00)
[2021-08-31] MEDS: ALBUTEROL/IPRATROPIUM 3 ML NEB RESP TX PRN (19:45)
[2021-08-31] MEDS: guaiFENesin 200 MG/10 ML UDCUP PO PRN (19:46)
[2021-08-31] MEDS: ENOXAPARIN 40 MG/0.4 ML SYRINGE SUBCUT SCH (22:17)
[2021-09-01] MEDS: guaiFENesin 200 MG/10 ML UDCUP PO PRN ×2 (02:35→11:10)
[2021-09-01] MEDS: ONDANSETRON 4 MG/2 ML VIAL IV PRN ×3 (02:35→22:56)
[2021-09-01 07:20] LABS: Basophils % 0.1 % (0.0-0.8); Hematocrit 38.7 VOL% (35.7-47.0); Hemoglobin 12.6 GM/DL (12.0-16.0); Immature Granulocytes % 0.6 %; Immature Granulocytes Absolute 0.08 #; Lymphocytes # 1.3 10*3/uL (1.4-4.0); Lymphocytes % 10.6 % (21.3-54.2); Mean Corpuscular HGB Conc 32.6 GM/DL (32-36); Mean Corpuscular Volume 92.1 FL (87-102); Mean Platelet Volume 10.2 FL (9.6-12.0); Monocytes % 8.7 % (1.7-12.7); Platelet Count 221 T/CUMM (130-400); White Blood Count 12.6 T/CUMM (4-12)
[2021-09-01 07:47] LABS: Calcium 8.5 MG/DL (8.5-10.1); Osmolality,Calculated 263.4 MOS/KG (273-304); Potassium 3.1 MMOL/L (3.5-5.1)
[2021-09-01] MEDS ORDERED: POTASSIUM CHLORIDE 20 MEQ TABLET PO ONE (07:50)
[2021-09-01] MEDS: DILTIAZEM CD 180 MG CAPSULE PO SCH (10:01)
[2021-09-01] MEDS ORDERED: FUROSEMIDE 40 MG/4 ML VIAL IV ONE (13:05)
[2021-09-01] MEDS: DILTIAZEM INJ 100 MG in SODIUM CHLORIDE 0.9% 100 ML IV SCH (13:43)
[2021-09-01] MEDS: ENOXAPARIN 40 MG/0.4 ML SYRINGE SUBCUT SCH (20:36)
[2021-09-02] MEDS: guaiFENesin 200 MG/10 ML UDCUP PO PRN (00:01)
[2021-09-02] MEDS: ALBUTEROL/IPRATROPIUM 3 ML NEB RESP TX PRN ×2 (02:15→14:22)
[2021-09-02] MEDS: POTASSIUM CHLORIDE 20 MEQ TABLET PO SCH ×2 (09:35→13:09)
[2021-09-02] MEDS: DILTIAZEM CD 180 MG CAPSULE PO SCH (09:36)
[2021-09-02] MEDS: cefTRIAXone 1,000 MG in SODIUM CHLORIDE 0.9% 100 ML IV SCH (13:08)
[2021-09-02] MEDS: ONDANSETRON 4 MG/2 ML VIAL IV PRN (13:55)
[2021-09-02] MEDS: ENOXAPARIN 40 MG/0.4 ML SYRINGE SUBCUT SCH (20:20)
[2021-09-03 05:20] LABS: Basophils % 0.2 % (0.0-0.8); Eosinophils % 0.1 % (0.00-10.9); Hematocrit 40.2 VOL% (35.7-47.0); Immature Granulocytes % 0.7 %; Immature Granulocytes Absolute 0.07 #; Lymphocytes # 1.2 10*3/uL (1.4-4.0); Lymphocytes % 11.4 % (21.3-54.2); Mean Corpuscular HGB Conc 32.3 GM/DL (32-36); Mean Corpuscular Volume 92.6 FL (87-102); Mean Platelet Volume 10.6 FL (9.6-12.0); Monocytes % 7.4 % (1.7-12.7); Neutrophils % 80.2 % (38.7-73.9); Platelet Count 226 T/CUMM (130-400); Red Blood Count 4.34 MC/CUMM (3.8-5.5); Red Cell Distribution Width 13.7 % (9.3-17.3); White Blood Count 10.1 T/CUMM (4-12)
[2021-09-03 05:44] LABS: Osmolality,Calculated 267.1 MOS/KG (273-304); Potassium 4.2 MMOL/L (3.5-5.1)
[2021-09-03] MEDS: ONDANSETRON 4 MG/2 ML VIAL IV PRN (05:44)
[2021-09-03] MEDS: DILTIAZEM CD 180 MG CAPSULE PO SCH (08:48)
[2021-09-03] MEDS: methylPREDNISolone SOD SUC 40 MG/1 ML VIAL IV SCH ×2 (08:54→17:43)
[2021-09-03] MEDS ORDERED: BISACODYL 10 MG SUPP RECTAL ONE (10:07)
[2021-09-03] MEDS: DOCUSATE SODIUM 100 MG CAPSULE PO SCH ×2 (11:11→21:02)
[2021-09-03] MEDS: PANTOPRAZOLE 40 MG TABLET PO SCH (11:11)
[2021-09-03] MEDS: cefTRIAXone 1,000 MG in SODIUM CHLORIDE 0.9% 100 ML IV SCH (11:14)
[2021-09-03] MEDS: ALBUTEROL/IPRATROPIUM 3 ML NEB RESP TX SCH ×2 (13:33→20:45)
[2021-09-03] MEDS: POLYETHYLENE GLYCOL POWDER 17 GM PACK PO SCH ×2 (15:29→21:03)
[2021-09-03] MEDS: ENOXAPARIN 40 MG/0.4 ML SYRINGE SUBCUT SCH (21:02)
[2021-09-04] MEDS: methylPREDNISolone SOD SUC 40 MG/1 ML VIAL IV SCH ×3 (00:28→16:33)
[2021-09-04] MEDS: ALBUTEROL/IPRATROPIUM 3 ML NEB RESP TX SCH ×4 (01:30→20:35)
[2021-09-04] MEDS ORDERED: LUBIPROSTONE 24 MCG CAPSULE PO SCH (09:00)
[2021-09-04] MEDS: POLYETHYLENE GLYCOL POWDER 17 GM PACK PO SCH ×3 (09:53→22:05)
[2021-09-04] MEDS: LINACLOTIDE 145 MCG CAPSULE PO SCH (09:54)
[2021-09-04] MEDS: DILTIAZEM CD 180 MG CAPSULE PO SCH (09:55)
[2021-09-04] MEDS: DOCUSATE SODIUM 100 MG CAPSULE PO SCH ×2 (09:55→22:05)
[2021-09-04] MEDS: PANTOPRAZOLE 40 MG TABLET PO SCH (09:56)
[2021-09-04] MEDS: cefTRIAXone 1,000 MG in SODIUM CHLORIDE 0.9% 100 ML IV SCH (10:10)
[2021-09-04] MEDS: FLUCONAZOLE 100 MG TABLET PO SCH (13:28)
[2021-09-04] MEDS: ARFORMOTEROL 15 MCG/2 ML NEB RESP TX SCH (20:35)
[2021-09-04] MEDS: BUDESONIDE 0.25 MG/2 ML NEB RESP TX SCH (20:35)
[2021-09-04] MEDS: ENOXAPARIN 40 MG/0.4 ML SYRINGE SUBCUT SCH (21:18)
[2021-09-04] MEDS: LACTULOSE 20 GM/30 ML UDCUP PO SCH (22:05)
[2021-09-05] MEDS: methylPREDNISolone SOD SUC 40 MG/1 ML VIAL IV SCH ×3 (01:34→16:48)
[2021-09-05] MEDS: ALBUTEROL/IPRATROPIUM 3 ML NEB RESP TX SCH ×4 (01:48→19:15)
[2021-09-05] MEDS: BUDESONIDE 0.25 MG/2 ML NEB RESP TX SCH ×2 (07:28→19:15)
[2021-09-05] MEDS: ARFORMOTEROL 15 MCG/2 ML NEB RESP TX SCH ×2 (07:28→19:15)
[2021-09-05] MEDS: DILTIAZEM CD 180 MG CAPSULE PO SCH (09:45)
[2021-09-05] MEDS: LINACLOTIDE 145 MCG CAPSULE PO SCH (09:45)
[2021-09-05] MEDS: FLUCONAZOLE 100 MG TABLET PO SCH (09:46)
[2021-09-05] MEDS: PANTOPRAZOLE 40 MG TABLET PO SCH (09:46)
[2021-09-05] MEDS: LACTULOSE 20 GM/30 ML UDCUP PO SCH ×2 (09:46→21:16)
[2021-09-05] MEDS: DOCUSATE SODIUM 100 MG CAPSULE PO SCH ×2 (09:46→21:15)
[2021-09-05] MEDS: cefTRIAXone 1,000 MG in SODIUM CHLORIDE 0.9% 100 ML IV SCH (09:47)
[2021-09-05] MEDS: POLYETHYLENE GLYCOL POWDER 17 GM PACK PO SCH (12:56)
[2021-09-05] MEDS: ENOXAPARIN 40 MG/0.4 ML SYRINGE SUBCUT SCH (21:15)
[2021-09-06] MEDS: ALBUTEROL/IPRATROPIUM 3 ML NEB RESP TX SCH ×4 (00:07→20:09)
[2021-09-06] MEDS: methylPREDNISolone SOD SUC 40 MG/1 ML VIAL IV SCH ×3 (01:24→21:20)
[2021-09-06] MEDS: ARFORMOTEROL 15 MCG/2 ML NEB RESP TX SCH ×2 (07:32→20:09)
[2021-09-06] MEDS: BUDESONIDE 0.25 MG/2 ML NEB RESP TX SCH ×2 (07:32→20:09)
[2021-09-06 09:12] LABS: Basophils % 0.3 % (0.0-0.8); Hematocrit 39.3 VOL% (35.7-47.0); Hemoglobin 12.5 GM/DL (12.0-16.0); Immature Granulocytes % 4.2 %; Immature Granulocytes Absolute 0.49 #; Lymphocytes # 0.8 10*3/uL (1.4-4.0); Lymphocytes % 6.6 % (21.3-54.2); Mean Corpuscular HGB Conc 31.8 GM/DL (32-36); Mean Corpuscular Volume 90.6 FL (87-102); Mean Platelet Volume 10.4 FL (9.6-12.0); Monocytes % 3.6 % (1.7-12.7); Neutrophils % 85.3 % (38.7-73.9); Platelet Count 363 T/CUMM (130-400); Red Blood Count 4.34 MC/CUMM (3.8-5.5); Red Cell Distribution Width 13.8 % (9.3-17.3); White Blood Count 11.6 T/CUMM (4-12)
[2021-09-06] MEDS: DILTIAZEM CD 180 MG CAPSULE PO SCH (09:23)
[2021-09-06] MEDS: PANTOPRAZOLE 40 MG TABLET PO SCH (09:24)
[2021-09-06] MEDS: FLUCONAZOLE 100 MG TABLET PO SCH (09:24)
[2021-09-06] MEDS: DOCUSATE SODIUM 100 MG CAPSULE PO SCH ×2 (09:24→21:21)
[2021-09-06] MEDS: LACTULOSE 20 GM/30 ML UDCUP PO SCH ×2 (09:25→21:17)
[2021-09-06] MEDS: LINACLOTIDE 145 MCG CAPSULE PO SCH (09:30)
[2021-09-06] MEDS: cefTRIAXone 1,000 MG in SODIUM CHLORIDE 0.9% 100 ML IV SCH (09:30)
[2021-09-06 09:32] LABS: Albumin 2.5 G/DL (3.4-5.0); Bilirubin,Total 0.5 MG/DL (0.20-1.00); Calcium 8.6 MG/DL (8.5-10.1); Osmolality,Calculated 281.7 MOS/KG (273-304); Potassium 3.9 MMOL/L (3.5-5.1); Total Protein 6.4 G/DL (6.4-8.2)
[2021-09-06] MEDS: carvediloL 3.125 MG TABLET PO SCH (21:21)
[2021-09-06] MEDS: ENOXAPARIN 40 MG/0.4 ML SYRINGE SUBCUT SCH (21:21)
[2021-09-07] MEDS: ALBUTEROL/IPRATROPIUM 3 ML NEB RESP TX SCH ×3 (01:16→13:06)
[2021-09-07] MEDS: ARFORMOTEROL 15 MCG/2 ML NEB RESP TX SCH (07:11)
[2021-09-07] MEDS: BUDESONIDE 0.25 MG/2 ML NEB RESP TX SCH (07:11)
[2021-09-07] MEDS: cefTRIAXone 1,000 MG in SODIUM CHLORIDE 0.9% 100 ML IV SCH (09:41)
[2021-09-07] MEDS: FLUCONAZOLE 100 MG TABLET PO SCH (09:42)
[2021-09-07] MEDS: PANTOPRAZOLE 40 MG TABLET PO SCH (09:42)
[2021-09-07] MEDS: carvediloL 3.125 MG TABLET PO SCH (09:42)
[2021-09-07] MEDS: methylPREDNISolone SOD SUC 40 MG/1 ML VIAL IV SCH (09:42)
[2021-09-07] MEDS: LINACLOTIDE 145 MCG CAPSULE PO SCH (09:42)
[2021-09-07] MEDS: LACTULOSE 20 GM/30 ML UDCUP PO SCH (09:43)
[2021-09-07] MEDS: DOCUSATE SODIUM 100 MG CAPSULE PO SCH (09:43)
[2021-09-07 16:22] VITALS: BP 147/73
[2021-09-07] MEDS ORDERED: BUDESONIDE/FORMOTEROL 160-4.5 INHALER 6 GM INH SCH (21:00)
[2021-09-08] MEDS ORDERED: predniSONE 20 MG TABLET PO SCH (09:00)
== END 2021-09-07 17:33 | disposition home health service (06) | DRG 190 ==
LOC: N.ED 09:17 → N.EDINP 09:17 → SUATTDRO 15:39 → N.TELEN 22:21 → SUATTDRO 09-02 10:14
PROVIDERS: ADMIT Internal Medicine Geriatric Medicine; ATTEND Hospitalist

== ENCOUNTER 2021-12-28 06:47 | Inpatient (IN) ==
[2021-12-28] MEDS ORDERED: DEXAMETHASONE 4 MG/1 ML VIAL IV STA (07:24)
[2021-12-28] MEDS ORDERED: ALBUTEROL 2.5 MG/3 ML NEB RESP TX STA (07:24)
[2021-12-28 08:30] LABS: Basophils % 0.1 % (0.0-0.8); Hemoglobin 13.2 GM/DL (12.0-16.0); Immature Granulocytes % 0.5 %; Immature Granulocytes Absolute 0.04 #; Lymphocytes # 1.8 10*3/uL (1.4-4.0); Lymphocytes % 22.5 % (21.3-54.2); Mean Corpuscular HGB Conc 34.7 GM/DL (32-36); Mean Corpuscular Volume 84.6 FL (87-102); Mean Platelet Volume 9.3 FL (9.6-12.0); Monocytes # 0.7 10*3/uL (0.11-0.8); Monocytes % 8.8 % (1.7-12.7); Neutrophils % 68.1 % (38.7-73.9); Platelet Count 315 T/CUMM (130-400); Red Blood Count 4.49 MC/CUMM (3.8-5.5); Red Cell Distribution Width 12.7 % (9.3-17.3); White Blood Count 7.9 T/CUMM (4-12)
[2021-12-28 08:46] LABS: Calcium 9.2 MG/DL (8.5-10.1); Osmolality,Calculated 239.2 MOS/KG (273-304); Potassium 3.9 MMOL/L (3.5-5.1)
[2021-12-28] MEDS ORDERED: SODIUM CHLORIDE 0.9% 1,000 ML IV STA (09:16)
[2021-12-28 10:56] LABS: Calcium 8.7 MG/DL (8.5-10.1); Osmolality,Calculated 241.1 MOS/KG (273-304); Potassium 3.7 MMOL/L (3.5-5.1)
[2021-12-28] MEDS ORDERED: GLUCAGON 1 MG VIAL IM PRN (11:25)
[2021-12-28] MEDS ORDERED: hydrALAZINE 20 MG/1 ML VIAL IV PRN (11:25)
[2021-12-28] MEDS ORDERED: MAGNESIUM SULF RIDER 2 GM/50 ML PREMIX IV ONE (11:25)
[2021-12-28] MEDS ORDERED: ACETAMINOPHEN 325 MG TABLET PO PRN (11:25)
[2021-12-28] MEDS ORDERED: DEXTROSE 10% 250 ML BAG IV PRN (11:34)
[2021-12-28 11:36] LABS: Mucus,Urine Occasional /LPF (Occasional); Squamous Epithelial Cell,Urine Occasional /HPF (0-10); Urine Appearance Clear (Clear); Urine Color Yellow (Yellow)
[2021-12-28 11:37] LABS: Bilirubin,Urine Negative (Negative); Blood, Urine Negative (Negative); Glucose,Urine (UA) Negative (Negative); Ketones,Urine Negative (Negative); Nitrite,Urine Negative (Negative); Protein,Urine Negative (Negative); Urine Urobilinogen 0.2 eU/dL (<2.0); Urine pH 7.5 (4.5-8.0)
[2021-12-28] MEDS ORDERED: ALBUTEROL/IPRATROPIUM 3 ML NEB RESP TX PRN (11:47)
[2021-12-28 11:57] LABS: Risk Ratio 2.64; Thyroid Stimulating Hormone 0.825 uIU/ml (0.358-3.74); VLDL Cholesterol 23.2 MG/DL
[2021-12-28] MEDS: SODIUM CHLORIDE 0.9% 1,000 ML IV SCH ×2 (13:30→23:15)
[2021-12-28] MEDS: ENOXAPARIN 40 MG/0.4 ML SYRINGE SUBCUT SCH (15:10)
[2021-12-28] MEDS: BUDESONIDE/FORMOTEROL 160-4.5 INHALER 6 GM INH SCH (22:45)
[2021-12-28] MEDS ORDERED: ALBUTEROL 2.5 MG/3 ML NEB RESP TX PRN (23:00)
[2021-12-28] MEDS: guaiFENesin/DM ER 600-30 MG TABLET PO SCH (23:27)
[2021-12-29] MEDS ORDERED: ALUMINUM/MAGNES/SIMETH MAX STR 30 ML UDCUP PO PRN (01:10)
[2021-12-29 05:29] LABS: Eosinophils % 0.2 % (0.00-10.9); Hematocrit 35.9 VOL% (35.7-47.0); Hemoglobin 12.4 GM/DL (12.0-16.0); Immature Granulocytes % 0.6 %; Immature Granulocytes Absolute 0.04 #; Lymphocytes # 1.5 10*3/uL (1.4-4.0); Lymphocytes % 22.6 % (21.3-54.2); Mean Corpuscular HGB Conc 34.5 GM/DL (32-36); Mean Corpuscular Volume 84.3 FL (87-102); Mean Platelet Volume 9.5 FL (9.6-12.0); Monocytes # 0.7 10*3/uL (0.11-0.8); Monocytes % 10.2 % (1.7-12.7); Neutrophils % 66.4 % (38.7-73.9); Platelet Count 285 T/CUMM (130-400); Red Blood Count 4.26 MC/CUMM (3.8-5.5); Red Cell Distribution Width 12.6 % (9.3-17.3); White Blood Count 6.6 T/CUMM (4-12)
[2021-12-29 05:48] LABS: Alanine Aminotransferase 19 U/L (13-56); Alkaline Phosphatase 63 U/L (45-117); Aspartate Amino Transferase 16 U/L (0-37); Bilirubin,Total < 0.39 MG/DL (0.20-1.00); Blood Urea Nitrogen 12 MG/DL (7-18); Calcium 7.9 MG/DL (8.5-10.1); Carbon Dioxide 27 MMOL/L (21-32); Chloride 86 MMOL/L (98-107); Estimated Glom Filtration Rate 98 ML/MIN; Glucose 89 MG/DL (74-106); Osmolality,Calculated 242.1 MOS/KG (273-304); Potassium 3.8 MMOL/L (3.5-5.1); Sodium 121 MMOL/L (136-145); Total Protein 5.8 G/DL (6.4-8.2)
[2021-12-29] MEDS: ONDANSETRON 4 MG/2 ML VIAL IV PRN ×2 (06:49→15:56)
[2021-12-29] MEDS: SODIUM CHLORIDE 0.9% 1,000 ML IV SCH ×2 (06:51→14:16)
[2021-12-29] MEDS: BUDESONIDE/FORMOTEROL 160-4.5 INHALER 6 GM INH SCH ×2 (08:15→21:55)
[2021-12-29] MEDS: PANTOPRAZOLE 40 MG TABLET PO SCH (08:15)
[2021-12-29] MEDS: guaiFENesin/DM ER 600-30 MG TABLET PO SCH ×2 (08:15→21:55)
[2021-12-29] MEDS: ENOXAPARIN 40 MG/0.4 ML SYRINGE SUBCUT SCH (12:40)
[2021-12-29] MEDS: ALBUTEROL/IPRATROPIUM 3 ML NEB RESP TX SCH ×3 (14:25→23:50)
[2021-12-29] MEDS: methylPREDNISolone SOD SUC 40 MG/1 ML VIAL IV SCH (14:34)
[2021-12-29] MEDS: SODIUM CHLORIDE 1 GM TABLET PO SCH ×2 (14:37→21:55)
[2021-12-29] MEDS ORDERED: AZITHROMYCIN INJ 500 MG in SODIUM CHLORIDE 0.9% 250 ML IV ONE (15:00)
[2021-12-29] MEDS: BUDESONIDE 0.5 MG/2 ML NEB RESP TX SCH (19:05)
[2021-12-30] MEDS: ALBUTEROL/IPRATROPIUM 3 ML NEB RESP TX SCH ×6 (04:00→22:40)
[2021-12-30] MEDS: methylPREDNISolone SOD SUC 40 MG/1 ML VIAL IV SCH ×2 (04:24→14:59)
[2021-12-30 05:00] LABS: Basophils % 0.2 % (0.0-0.8); Hematocrit 36.8 VOL% (35.7-47.0); Hemoglobin 12.4 GM/DL (12.0-16.0); Immature Granulocytes % 1.2 %; Immature Granulocytes Absolute 0.08 #; Lymphocytes # 0.9 10*3/uL (1.4-4.0); Lymphocytes % 14.1 % (21.3-54.2); Mean Corpuscular HGB Conc 33.7 GM/DL (32-36); Mean Corpuscular Volume 85.4 FL (87-102); Mean Platelet Volume 9.3 FL (9.6-12.0); Monocytes # 0.3 10*3/uL (0.11-0.8); Neutrophils % 80.5 % (38.7-73.9); Platelet Count 278 T/CUMM (130-400); Red Blood Count 4.31 MC/CUMM (3.8-5.5); Red Cell Distribution Width 12.5 % (9.3-17.3); White Blood Count 6.5 T/CUMM (4-12)
[2021-12-30 05:14] LABS: Alanine Aminotransferase 22 U/L (13-56); Albumin 2.9 G/DL (3.4-5.0); Alkaline Phosphatase 64 U/L (45-117); Aspartate Amino Transferase 14 U/L (0-37); Bilirubin,Total < 0.39 MG/DL (0.20-1.00); Blood Urea Nitrogen 9 MG/DL (7-18); Carbon Dioxide 26 MMOL/L (21-32); Chloride 88 MMOL/L (98-107); Estimated Glom Filtration Rate 98 ML/MIN; Glucose 115 MG/DL (74-106); Osmolality,Calculated 241.2 MOS/KG (273-304); Potassium 4.8 MMOL/L (3.5-5.1); Total Protein 5.8 G/DL (6.4-8.2)
[2021-12-30 05:17] LABS: Sodium 120 MMOL/L (136-145)
[2021-12-30] MEDS: BUDESONIDE 0.5 MG/2 ML NEB RESP TX SCH ×2 (07:26→19:00)
[2021-12-30] MEDS ORDERED: FUROSEMIDE 20 MG/2 ML VIAL IV ONE (07:50)
[2021-12-30] MEDS: guaiFENesin/DM ER 600-30 MG TABLET PO SCH ×2 (10:20→20:23)
[2021-12-30] MEDS: BUDESONIDE/FORMOTEROL 160-4.5 INHALER 6 GM INH SCH ×2 (10:20→20:24)
[2021-12-30] MEDS: SODIUM CHLORIDE 1 GM TABLET PO SCH ×3 (10:20→20:23)
[2021-12-30] MEDS: PANTOPRAZOLE 40 MG TABLET PO SCH (10:20)
[2021-12-30] MEDS: AZITHROMYCIN INJ 250 MG in SODIUM CHLORIDE 0.9% 250 ML IV SCH (10:28)
[2021-12-30] MEDS: ENOXAPARIN 40 MG/0.4 ML SYRINGE SUBCUT SCH (13:12)
[2021-12-30] MEDS ORDERED: SODIUM CHLORIDE 3% INJ 100 ML IV ONE (15:30)
[2021-12-31] MEDS: methylPREDNISolone SOD SUC 40 MG/1 ML VIAL IV SCH ×2 (02:49→16:20)
[2021-12-31] MEDS: ALBUTEROL/IPRATROPIUM 3 ML NEB RESP TX SCH ×6 (03:05→23:26)
[2021-12-31 05:40] LABS: Basophils % 0.1 % (0.0-0.8); Hematocrit 38.1 VOL% (35.7-47.0); Immature Granulocytes % 0.7 %; Immature Granulocytes Absolute 0.08 #; Lymphocytes # 1.1 10*3/uL (1.4-4.0); Lymphocytes % 9.7 % (21.3-54.2); Mean Corpuscular HGB Conc 34.1 GM/DL (32-36); Mean Corpuscular Volume 86.2 FL (87-102); Mean Platelet Volume 9.6 FL (9.6-12.0); Monocytes # 0.6 10*3/uL (0.11-0.8); Monocytes % 5.2 % (1.7-12.7); Neutrophils % 84.3 % (38.7-73.9); Platelet Count 334 T/CUMM (130-400); Red Blood Count 4.42 MC/CUMM (3.8-5.5); Red Cell Distribution Width 12.8 % (9.3-17.3); White Blood Count 11.1 T/CUMM (4-12)
[2021-12-31 06:03] LABS: Alanine Aminotransferase 23 U/L (13-56); Albumin 3.2 G/DL (3.4-5.0); Alkaline Phosphatase 69 U/L (45-117); Aspartate Amino Transferase 13 U/L (0-37); Bilirubin,Total < 0.39 MG/DL (0.20-1.00); Blood Urea Nitrogen 13 MG/DL (7-18); Calcium 8.6 MG/DL (8.5-10.1); Carbon Dioxide 27 MMOL/L (21-32); Chloride 89 MMOL/L (98-107); Estimated Glom Filtration Rate 88 ML/MIN; Glucose 125 MG/DL (74-106); Osmolality,Calculated 249.6 MOS/KG (273-304); Potassium 4.1 MMOL/L (3.5-5.1); Sodium 124 MMOL/L (136-145); Total Protein 6.2 G/DL (6.4-8.2)
[2021-12-31] MEDS: BUDESONIDE 0.5 MG/2 ML NEB RESP TX SCH ×2 (07:19→19:29)
[2021-12-31] MEDS: guaiFENesin/DM ER 600-30 MG TABLET PO SCH ×2 (09:43→20:27)
[2021-12-31] MEDS: BUDESONIDE/FORMOTEROL 160-4.5 INHALER 6 GM INH SCH ×2 (09:43→20:28)
[2021-12-31] MEDS: SODIUM CHLORIDE 1 GM TABLET PO SCH ×3 (09:43→20:27)
[2021-12-31] MEDS: PANTOPRAZOLE 40 MG TABLET PO SCH (09:43)
[2021-12-31] MEDS: AZITHROMYCIN INJ 250 MG in SODIUM CHLORIDE 0.9% 250 ML IV SCH (11:39)
[2021-12-31] MEDS ORDERED: FUROSEMIDE 40 MG TABLET PO ONE (12:13)
[2021-12-31] MEDS: ENOXAPARIN 40 MG/0.4 ML SYRINGE SUBCUT SCH (13:47)
[2022-01-01] MEDS: methylPREDNISolone SOD SUC 40 MG/1 ML VIAL IV SCH ×2 (03:08→15:30)
[2022-01-01] MEDS: ALBUTEROL/IPRATROPIUM 3 ML NEB RESP TX SCH ×6 (03:26→23:13)
[2022-01-01 04:05] LABS: Hematocrit 37.2 VOL% (35.7-47.0); Hemoglobin 12.7 GM/DL (12.0-16.0); Immature Granulocytes % 0.9 %; Immature Granulocytes Absolute 0.09 #; Lymphocytes # 0.6 10*3/uL (1.4-4.0); Lymphocytes % 6.5 % (21.3-54.2); Mean Corpuscular HGB Conc 34.1 GM/DL (32-36); Mean Corpuscular Volume 86.3 FL (87-102); Mean Platelet Volume 9.4 FL (9.6-12.0); Monocytes # 0.4 10*3/uL (0.11-0.8); Monocytes % 3.7 % (1.7-12.7); Neutrophils % 88.9 % (38.7-73.9); Platelet Count 317 T/CUMM (130-400); Red Blood Count 4.31 MC/CUMM (3.8-5.5); White Blood Count 9.6 T/CUMM (4-12)
[2022-01-01 04:26] LABS: Alanine Aminotransferase 22 U/L (13-56); Albumin 3.1 G/DL (3.4-5.0); Alkaline Phosphatase 78 U/L (45-117); Aspartate Amino Transferase 15 U/L (0-37); Bilirubin,Total < 0.39 MG/DL (0.20-1.00); Blood Urea Nitrogen 15 MG/DL (7-18); Calcium 8.1 MG/DL (8.5-10.1); Carbon Dioxide 28 MMOL/L (21-32); Chloride 89 MMOL/L (98-107); Estimated Glom Filtration Rate 75 ML/MIN; Glucose 163 MG/DL (74-106); Osmolality,Calculated 257.4 MOS/KG (273-304); Potassium 3.7 MMOL/L (3.5-5.1); Sodium 126 MMOL/L (136-145); Total Protein 5.8 G/DL (6.4-8.2)
[2022-01-01] MEDS: BUDESONIDE 0.5 MG/2 ML NEB RESP TX SCH ×2 (07:24→19:54)
[2022-01-01] MEDS: BUDESONIDE/FORMOTEROL 160-4.5 INHALER 6 GM INH SCH ×2 (08:41→20:20)
[2022-01-01] MEDS: AZITHROMYCIN INJ 250 MG in SODIUM CHLORIDE 0.9% 250 ML IV SCH (08:42)
[2022-01-01] MEDS: DOCUSATE SODIUM 100 MG CAPSULE PO PRN (08:42)
[2022-01-01] MEDS: guaiFENesin/DM ER 600-30 MG TABLET PO SCH ×2 (08:42→20:19)
[2022-01-01] MEDS: SODIUM CHLORIDE 1 GM TABLET PO SCH ×3 (08:42→20:19)
[2022-01-01] MEDS: PANTOPRAZOLE 40 MG TABLET PO SCH (09:00)
[2022-01-01] MEDS ORDERED: FUROSEMIDE 40 MG TABLET PO ONE (11:44)
[2022-01-01] MEDS: ENOXAPARIN 40 MG/0.4 ML SYRINGE SUBCUT SCH (13:53)
[2022-01-01] MEDS: ONDANSETRON 4 MG/2 ML VIAL IV PRN (16:20)
[2022-01-02] MEDS: methylPREDNISolone SOD SUC 40 MG/1 ML VIAL IV SCH ×2 (03:40→14:46)
[2022-01-02] MEDS: ALBUTEROL/IPRATROPIUM 3 ML NEB RESP TX SCH ×5 (04:02→19:20)
[2022-01-02 05:23] LABS: Basophils % 0.1 % (0.0-0.8); Hematocrit 37.5 VOL% (35.7-47.0); Hemoglobin 12.6 GM/DL (12.0-16.0); Immature Granulocytes % 1.2 %; Immature Granulocytes Absolute 0.11 #; Lymphocytes # 1.8 10*3/uL (1.4-4.0); Lymphocytes % 19.2 % (21.3-54.2); Mean Corpuscular HGB Conc 33.6 GM/DL (32-36); Mean Corpuscular Volume 87.8 FL (87-102); Mean Platelet Volume 9.3 FL (9.6-12.0); Monocytes % 10.2 % (1.7-12.7); Neutrophils % 69.3 % (38.7-73.9); Platelet Count 296 T/CUMM (130-400); Red Blood Count 4.27 MC/CUMM (3.8-5.5); Red Cell Distribution Width 13.2 % (9.3-17.3); White Blood Count 9.3 T/CUMM (4-12)
[2022-01-02 05:39] LABS: Alanine Aminotransferase 23 U/L (13-56); Albumin 2.9 G/DL (3.4-5.0); Alkaline Phosphatase 58 U/L (45-117); Aspartate Amino Transferase 15 U/L (0-37); Bilirubin,Total < 0.39 MG/DL (0.20-1.00); Blood Urea Nitrogen 19 MG/DL (7-18); Calcium 8.3 MG/DL (8.5-10.1); Carbon Dioxide 32 MMOL/L (21-32); Chloride 89 MMOL/L (98-107); Estimated Glom Filtration Rate 75 ML/MIN; Glucose 84 MG/DL (74-106); Osmolality,Calculated 253.4 MOS/KG (273-304); Potassium 3.8 MMOL/L (3.5-5.1); Sodium 126 MMOL/L (136-145); Total Protein 5.5 G/DL (6.4-8.2)
[2022-01-02] MEDS: BUDESONIDE 0.5 MG/2 ML NEB RESP TX SCH ×2 (06:56→19:20)
[2022-01-02] MEDS: SODIUM CHLORIDE 1 GM TABLET PO SCH ×3 (08:35→21:35)
[2022-01-02] MEDS: AZITHROMYCIN INJ 250 MG in SODIUM CHLORIDE 0.9% 250 ML IV SCH (08:35)
[2022-01-02] MEDS: PANTOPRAZOLE 40 MG TABLET PO SCH (08:36)
[2022-01-02] MEDS: BUDESONIDE/FORMOTEROL 160-4.5 INHALER 6 GM INH SCH ×2 (08:36→21:35)
[2022-01-02] MEDS: POLYETHYLENE GLYCOL POWDER 17 GM PACK PO SCH ×2 (08:36→21:35)
[2022-01-02] MEDS: DOCUSATE SODIUM 100 MG CAPSULE PO PRN (08:36)
[2022-01-02] MEDS: guaiFENesin/DM ER 600-30 MG TABLET PO SCH ×2 (08:36→21:35)
[2022-01-02] MEDS: ENOXAPARIN 40 MG/0.4 ML SYRINGE SUBCUT SCH (14:46)
[2022-01-03] MEDS: ALBUTEROL/IPRATROPIUM 3 ML NEB RESP TX SCH ×6 (00:13→19:30)
[2022-01-03] MEDS: methylPREDNISolone SOD SUC 40 MG/1 ML VIAL IV SCH ×2 (02:33→15:19)
[2022-01-03 05:17] LABS: Basophils % 0.1 % (0.0-0.8); Hematocrit 35.9 VOL% (35.7-47.0); Immature Granulocytes Absolute 0.16 #; Lymphocytes # 0.7 10*3/uL (1.4-4.0); Lymphocytes % 8.4 % (21.3-54.2); Mean Corpuscular HGB Conc 33.4 GM/DL (32-36); Mean Corpuscular Volume 88.2 FL (87-102); Mean Platelet Volume 9.1 FL (9.6-12.0); Monocytes # 0.5 10*3/uL (0.11-0.8); Neutrophils % 83.5 % (38.7-73.9); Platelet Count 272 T/CUMM (130-400); Red Blood Count 4.07 MC/CUMM (3.8-5.5); Red Cell Distribution Width 13.1 % (9.3-17.3); White Blood Count 7.9 T/CUMM (4-12)
[2022-01-03 05:33] LABS: Alanine Aminotransferase 24 U/L (13-56); Albumin 2.7 G/DL (3.4-5.0); Alkaline Phosphatase 65 U/L (45-117); Aspartate Amino Transferase 13 U/L (0-37); Bilirubin,Total < 0.39 MG/DL (0.20-1.00); Blood Urea Nitrogen 17 MG/DL (7-18); Calcium 8.4 MG/DL (8.5-10.1); Carbon Dioxide 33 MMOL/L (21-32); Chloride 92 MMOL/L (98-107); Estimated Glom Filtration Rate 93 ML/MIN; Glucose 122 MG/DL (74-106); Osmolality,Calculated 257.2 MOS/KG (273-304); Potassium 4.2 MMOL/L (3.5-5.1); Sodium 127 MMOL/L (136-145); Total Protein 5.2 G/DL (6.4-8.2)
[2022-01-03] MEDS: BUDESONIDE 0.5 MG/2 ML NEB RESP TX SCH ×2 (07:15→19:30)
[2022-01-03] MEDS: PANTOPRAZOLE 40 MG TABLET PO SCH (08:49)
[2022-01-03] MEDS: FUROSEMIDE 20 MG TABLET PO SCH ×2 (08:49→15:12)
[2022-01-03] MEDS: guaiFENesin/DM ER 600-30 MG TABLET PO SCH ×2 (08:49→20:45)
[2022-01-03] MEDS: BUDESONIDE/FORMOTEROL 160-4.5 INHALER 6 GM INH SCH ×2 (08:50→20:46)
[2022-01-03] MEDS: POLYETHYLENE GLYCOL POWDER 17 GM PACK PO SCH ×2 (08:51→20:45)
[2022-01-03] MEDS: SODIUM CHLORIDE 1 GM TABLET PO SCH ×3 (08:53→20:45)
[2022-01-03] MEDS: AZITHROMYCIN INJ 250 MG in SODIUM CHLORIDE 0.9% 250 ML IV SCH (08:54)
[2022-01-03] MEDS ORDERED: BISACODYL 5 MG TABLET PO ONE (11:52)
[2022-01-03] MEDS: ENOXAPARIN 40 MG/0.4 ML SYRINGE SUBCUT SCH (12:59)
[2022-01-04] MEDS: ALBUTEROL/IPRATROPIUM 3 ML NEB RESP TX SCH ×7 (00:59→22:46)
[2022-01-04] MEDS: methylPREDNISolone SOD SUC 40 MG/1 ML VIAL IV SCH ×2 (02:08→15:57)
[2022-01-04] MEDS ORDERED: MEPERIDINE 50 MG/1 ML VIAL IM ONE (07:00)
[2022-01-04] MEDS ORDERED: PROMETHAZINE 25 MG/1 ML VIAL IM ONE (07:00)
[2022-01-04] MEDS ORDERED: GLYCOPYRROLATE 0.4 MG/2 ML VIAL IM ONE (07:00)
[2022-01-04] MEDS ORDERED: LIDOCAINE 1% 20 ML VIAL MISC INJ ONE (07:30)
[2022-01-04] MEDS: BUDESONIDE 0.5 MG/2 ML NEB RESP TX SCH ×2 (07:30→19:46)
[2022-01-04] MEDS ORDERED: LIDOCAINE 2% 20 ML VIAL RESP TX ONE (07:30)
[2022-01-04] MEDS ORDERED: MIDAZOLAM 2 MG/2 ML VIAL IV ONE (07:30)
[2022-01-04] MEDS ORDERED: LIDOCAINE 2% VISCOUS 100 ML BOTTLE SWISH/SPIT ONE (07:30)
[2022-01-04] MEDS: AZITHROMYCIN INJ 250 MG in SODIUM CHLORIDE 0.9% 250 ML IV SCH (09:33)
[2022-01-04] MEDS: BUDESONIDE/FORMOTEROL 160-4.5 INHALER 6 GM INH SCH ×2 (09:37→22:05)
[2022-01-04] MEDS: PANTOPRAZOLE 40 MG TABLET PO SCH (10:03)
[2022-01-04] MEDS: SODIUM CHLORIDE 1 GM TABLET PO SCH ×3 (10:03→22:05)
[2022-01-04] MEDS: POLYETHYLENE GLYCOL POWDER 17 GM PACK PO SCH ×2 (10:03→22:05)
[2022-01-04] MEDS: FUROSEMIDE 20 MG TABLET PO SCH ×2 (10:03→15:53)
[2022-01-04] MEDS: guaiFENesin/DM ER 600-30 MG TABLET PO SCH ×2 (10:03→22:05)
[2022-01-04] MEDS: ENOXAPARIN 40 MG/0.4 ML SYRINGE SUBCUT SCH (13:49)
[2022-01-05] MEDS: methylPREDNISolone SOD SUC 40 MG/1 ML VIAL IV SCH ×2 (02:51→14:40)
[2022-01-05] MEDS: ALBUTEROL/IPRATROPIUM 3 ML NEB RESP TX SCH ×5 (02:55→19:45)
[2022-01-05 05:13] LABS: Basophils % 0.1 % (0.0-0.8); Hematocrit 35.5 VOL% (35.7-47.0); Hemoglobin 11.8 GM/DL (12.0-16.0); Immature Granulocytes % 1.2 %; Immature Granulocytes Absolute 0.19 #; Lymphocytes # 0.9 10*3/uL (1.4-4.0); Lymphocytes % 5.8 % (21.3-54.2); Mean Corpuscular HGB Conc 33.2 GM/DL (32-36); Mean Corpuscular Volume 87.9 FL (87-102); Mean Platelet Volume 9.2 FL (9.6-12.0); Monocytes # 0.7 10*3/uL (0.11-0.8); Monocytes % 4.4 % (1.7-12.7); Neutrophils % 88.5 % (38.7-73.9); Platelet Count 232 T/CUMM (130-400); Red Blood Count 4.04 MC/CUMM (3.8-5.5); Red Cell Distribution Width 13.4 % (9.3-17.3); White Blood Count 15.9 T/CUMM (4-12)
[2022-01-05 05:50] LABS: Calcium 8.4 MG/DL (8.5-10.1); Osmolality,Calculated 257.2 MOS/KG (273-304); Potassium 3.9 MMOL/L (3.5-5.1)
[2022-01-05] MEDS: BUDESONIDE 0.5 MG/2 ML NEB RESP TX SCH ×2 (06:58→19:45)
[2022-01-05] MEDS: BUDESONIDE/FORMOTEROL 160-4.5 INHALER 6 GM INH SCH ×2 (09:22→21:07)
[2022-01-05] MEDS: guaiFENesin/DM ER 600-30 MG TABLET PO SCH ×2 (09:22→21:06)
[2022-01-05] MEDS: PANTOPRAZOLE 40 MG TABLET PO SCH (09:22)
[2022-01-05] MEDS: POLYETHYLENE GLYCOL POWDER 17 GM PACK PO SCH ×2 (09:22→21:06)
[2022-01-05] MEDS: FUROSEMIDE 20 MG TABLET PO SCH ×2 (09:22→14:34)
[2022-01-05] MEDS: SODIUM CHLORIDE 1 GM TABLET PO SCH ×3 (09:27→21:06)
[2022-01-05] MEDS: AZITHROMYCIN INJ 250 MG in SODIUM CHLORIDE 0.9% 250 ML IV SCH (09:32)
[2022-01-05] MEDS: ENOXAPARIN 40 MG/0.4 ML SYRINGE SUBCUT SCH (13:52)
[2022-01-06] MEDS: ALBUTEROL/IPRATROPIUM 3 ML NEB RESP TX SCH ×7 (00:27→23:30)
[2022-01-06] MEDS: methylPREDNISolone SOD SUC 40 MG/1 ML VIAL IV SCH ×2 (03:26→16:03)
[2022-01-06 05:06] LABS: Basophils % 0.2 % (0.0-0.8); Hematocrit 36.6 VOL% (35.7-47.0); Hemoglobin 12.3 GM/DL (12.0-16.0); Immature Granulocytes % 1.8 %; Lymphocytes % 8.4 % (21.3-54.2); Mean Corpuscular HGB Conc 33.6 GM/DL (32-36); Mean Platelet Volume 9.1 FL (9.6-12.0); Monocytes # 0.5 10*3/uL (0.11-0.8); Monocytes % 4.7 % (1.7-12.7); Neutrophils % 84.9 % (38.7-73.9); Platelet Count 214 T/CUMM (130-400); Red Blood Count 4.16 MC/CUMM (3.8-5.5); Red Cell Distribution Width 13.6 % (9.3-17.3); White Blood Count 11.4 T/CUMM (4-12)
[2022-01-06 05:27] LABS: Calcium 8.2 MG/DL (8.5-10.1); Osmolality,Calculated 259.1 MOS/KG (273-304); Potassium 4.3 MMOL/L (3.5-5.1)
[2022-01-06] MEDS: BUDESONIDE 0.5 MG/2 ML NEB RESP TX SCH ×2 (07:18→19:18)
[2022-01-06] MEDS: PANTOPRAZOLE 40 MG TABLET PO SCH (10:22)
[2022-01-06] MEDS: guaiFENesin/DM ER 600-30 MG TABLET PO SCH ×2 (10:22→21:07)
[2022-01-06] MEDS: POLYETHYLENE GLYCOL POWDER 17 GM PACK PO SCH ×2 (10:23→21:08)
[2022-01-06] MEDS: AZITHROMYCIN INJ 250 MG in SODIUM CHLORIDE 0.9% 250 ML IV SCH (10:26)
[2022-01-06] MEDS: BUDESONIDE/FORMOTEROL 160-4.5 INHALER 6 GM INH SCH ×2 (10:27→21:07)
[2022-01-06] MEDS: SODIUM CHLORIDE 1 GM TABLET PO SCH ×3 (10:47→21:07)
[2022-01-06] MEDS: FUROSEMIDE 20 MG TABLET PO SCH ×2 (10:47→16:04)
[2022-01-06] MEDS: ENOXAPARIN 40 MG/0.4 ML SYRINGE SUBCUT SCH (13:18)
[2022-01-07] MEDS: methylPREDNISolone SOD SUC 40 MG/1 ML VIAL IV SCH (02:12)
[2022-01-07] MEDS: ALBUTEROL/IPRATROPIUM 3 ML NEB RESP TX SCH ×3 (03:15→10:19)
[2022-01-07 05:54] LABS: Basophils % 0.2 % (0.0-0.8); Hematocrit 38.2 VOL% (35.7-47.0); Hemoglobin 12.8 GM/DL (12.0-16.0); Immature Granulocytes Absolute 0.36 #; Lymphocytes # 0.6 10*3/uL (1.4-4.0); Lymphocytes % 5.2 % (21.3-54.2); Mean Corpuscular HGB Conc 33.5 GM/DL (32-36); Mean Corpuscular Volume 88.2 FL (87-102); Mean Platelet Volume 9.4 FL (9.6-12.0); Monocytes # 0.4 10*3/uL (0.11-0.8); Monocytes % 3.4 % (1.7-12.7); Neutrophils % 88.2 % (38.7-73.9); Platelet Count 221 T/CUMM (130-400); Red Blood Count 4.33 MC/CUMM (3.8-5.5); Red Cell Distribution Width 13.5 % (9.3-17.3); White Blood Count 12.2 T/CUMM (4-12)
[2022-01-07 06:11] LABS: Calcium 8.5 MG/DL (8.5-10.1); Osmolality,Calculated 251.6 MOS/KG (273-304); Potassium 4.3 MMOL/L (3.5-5.1)
[2022-01-07] MEDS: BUDESONIDE 0.5 MG/2 ML NEB RESP TX SCH (07:10)
[2022-01-07] MEDS ORDERED: predniSONE 20 MG TABLET PO SCH (09:00)
[2022-01-07] MEDS ORDERED: SODIUM CHLORIDE 1 GM TABLET PO SCH (09:00)
[2022-01-07] MEDS: guaiFENesin/DM ER 600-30 MG TABLET PO SCH (10:53)
[2022-01-07] MEDS: POLYETHYLENE GLYCOL POWDER 17 GM PACK PO SCH (10:53)
[2022-01-07] MEDS: PANTOPRAZOLE 40 MG TABLET PO SCH (10:54)
[2022-01-07] MEDS: FUROSEMIDE 20 MG TABLET PO SCH (10:54)
[2022-01-07] MEDS: BUDESONIDE/FORMOTEROL 160-4.5 INHALER 6 GM INH SCH (10:55)
[2022-01-07 12:23] VITALS: BP 128/78
== END 2022-01-07 13:45 | disposition hospice, home (50) | DRG 181 ==
LOC: N.ED 06:47 → N.EDINP 11:23 → SUATTDRO 11:23 → N.TELEN 23:30
PROVIDERS: ADMIT Internal Medicine; ATTEND Internal Medicine
PROC: BRONCHB (2022-01-04 07:35)